=== PATIENT | female | born 1990 | race Caucasian/White ===

== ENCOUNTER → 2018-05-31 13:24 | Outpatient (REF) | payer BC, SELFPAY | LOC: LBN 13:24 | PROVIDERS: PCP Family Medicine; Visit Provider Nurse Practitioner Family | DX: R10.9 Unspecified abdominal pain (principal) | CPT/HCPCS: 87077; 87086 ==

== ENCOUNTER → 2018-05-31 15:24 | Outpatient (CLI) | payer BC, SELFPAY ==
[2018-05-31 17:10] LABS: ALT 40 U/L (12-78); AST 20 U/L (15-37); Albumin 3.6 g/dL (3.4-5.0); Alkaline Phosphatase 107 U/L (46-116); Amylase 41 U/L (25-115); Anion Gap 10.5 mmol/L (3-11); BUN 13 mg/dL (7-18); Bilirubin, Total 0.1 mg/dL (0.2-1.0); CO2 20.5 mmol/L (21.0-32.0); CREATININE 0.84 mg/dL (0.55-1.02); Calcium 8.6 mg/dL (8.5-10.1); Chloride 108 mmol/L (98-107); Glucose 99 mg/dL (70-100); Lipase 272 U/L (73-393); Potassium 3.8 mmol/L (3.5-5.1); Sodium 139 mmol/L (136-145); Total Protein 7.2 g/dL (6.4-8.2)
== END ==
PROVIDERS: PCP Family Medicine; Visit Provider Nurse Practitioner Family
DX: R10.9 Unspecified abdominal pain (principal)
CPT/HCPCS: 36415; 80053; 83690; 82150

== ENCOUNTER → 2018-06-02 00:49 | Outpatient (CLI) | payer BC, SELFPAY ==
[2018-06-02] MEDS: Omnipaque 350 MG/ML 100 ML BTL IJ (10:17)
[2018-06-02] MEDS: Omnipaque 350 MG/ML 50 ML BTL IJ ×2 (10:19→10:20)
--- NOTE | 2018-06-02 10:26 | DI.RPTCT_ITS ---
SYMPTOM/DIAGNOSIS: RT SIDED ABD PAIN, HEPATOMEGALY, ? RENAL CALCULI, ASTHMA , TBI ABDOMINAL AND PELVIC CT: 06/02 CT examination of the abdomen and pelvis was performed with initial noncontrast CT of the abdomen and pelvis followed by contrast enhanced abdominal and pelvic CT utilizing venous phase imaging following intravenous infusion of 125 cc Omnipaque 350 and ingestion of dilute barium. Images obtained through the lung bases are unremarkable. Liver, spleen and pancreas appear normal. Gallbladder and bile ducts are CT normal. Adrenals and kidneys are normal except for an apparent incidental 1.5 cm in diameter right renal cyst. No evidence of hydronephrosis or nephrolithiasis. Abdominal aorta is of normal diameter and no major vascular abnormalities seen. No significant abdominal wall hernia seen. Note is made of nonspecific mild prominence of mesenteric lymph nodes the largest of which measure in the 2 cm range. Appendix is normal. No evidence of diverticulitis or bowel obstruction. There is an IUD in place in the uterus. Otherwise [employer] structures are unremarkable. CONCLUSION: Negative abdominal and pelvic CT, except for mild prominence of mesenteric lymph nodes which is a nonspecific finding but which may be associated with mesenteric adenitis. Please correlate clinically.
== END ==
PROVIDERS: PCP Family Medicine; Visit Provider Nurse Practitioner Family
DX: R10.31 Right lower quadrant pain (principal); R16.0 Hepatomegaly, not elsewhere classified; R59.0 Localized enlarged lymph nodes; Z97.5 Presence of (intrauterine) contraceptive device; J45.909 Unspecified asthma, uncomplicated
CPT/HCPCS: 74178; J3490; Q9967

== ENCOUNTER → 2018-06-10 16:47 | Outpatient (REF) | payer BC, SELFPAY ==
[2018-06-14 15:05] LABS: Chlamydia Result Negative; GC Result Negative; Specimen Description CERVIX
== END ==
LOC: LBN 16:47
PROVIDERS: PCP Family Medicine; Visit Provider Obstetrics & Gynecology Gynecology
DX: R10.30 Lower abdominal pain, unspecified (principal); Z11.3 Encounter for screening for infections with a predominantly sexual mode of transmission
CPT/HCPCS: 87491; 87591

== ENCOUNTER 2018-06-16 16:28 | Outpatient (CLI) | payer BC, SELFPAY | END 2018-06-16 16:48 | PROVIDERS: PCP Family Medicine; Visit Provider Nurse Practitioner Family | DX: R30.0 Dysuria (principal) | CPT/HCPCS: 87086 ==

== ENCOUNTER 2018-10-13 17:29 | Emergency (ER) | payer BC, SELFPAY ==
[2018-10-13 17:36] VITALS: BP 135/56; PULSE 96; RESP 16; TEMP 36.5; O2SAT 98
--- NOTE | 2018-10-13 17:57 | DI.RAD_ITS ---
SYMPTOM/DIAGNOSIS: LAT HIP PAIN AFTER FALL LEFT HIP AND PELVIS: No acute fracture or dislocation is identified. There is an intrauterine device in place. The soft tissues are unremarkable. IMPRESSION: No acute abnormality.
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
[2018-10-13] MEDS: Ibuprofen 600 MG TAB PO (18:09)
[2018-10-13] MEDS: Acetaminophen 500 MG TAB 1000 MG PO (18:10)
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
[2018-10-13 19:06] VITALS: PULSE 88; RESP 17; TEMP 36.7; O2SAT 98
--- NOTE | 2018-10-14 08:07 | CMPROGNOTE_ITS ---
Care Management Progress Note 10/14-CT Epperson requested assistance with a general surgery f/u in two days for Hematoma L hip. Referral faxed to [facility] this am.
== END 2018-10-13 19:03 | disposition home or self-care (01) ==
PROVIDERS: Emergency Provider Physician Assistant; PCP Family Medicine
DX: S70.02XA Contusion of left hip, initial encounter (principal); W01.10XA Fall on same level from slipping, tripping and stumbling with subsequent striking against unspecified object, initial encounter; Y92.091 Bathroom in other non-institutional residence as the place of occurrence of the external cause
CPT/HCPCS: 81025; 99283; 73502

== ENCOUNTER 2018-12-24 22:55 | Emergency (ER) | payer BC, SELFPAY ==
[2018-12-24 23:06] VITALS: BP 107/72; PULSE 104; RESP 18; TEMP 37.1; O2SAT 100
--- NOTE | 2018-12-24 23:14 | W.ED.GENAD ---
Discharge Plan Disposition Patient Disposition: HOME Condition: Improving Discharge Details Chief Complaint: Abd Prob Clinical Impression: Nausea, vomiting and diarrhea, Epigastric abdominal pain Primary Care Provider: Kimberly Reis ED Provider: Isai Cheema [place] [facility] and New Rx's Prescriptions: New promethazine 25 mg tablet 25 mg PO Q6H PRN (Reason: nausea and vomiting) Qty: 10 RF: 0 Continued magnesium oxide 500 mg capsule 500 mg PO DAILY RF: 0 paroxetine HCl 40 mg tablet 40 mg PO DAILY Qty: 30 RF: 4 albuterol sulfate [ProAir HFA] 8.5 GM HFA aerosol inhaler 2 puff Inhalation Q6H PRN Qty: 1 RF: 4 topiramate 100 MG tablet 100 mg PO HS RF: 0 candesartan [Atacand] 8 MG tablet 8 mg PO DAILY RF: 0 Mirena 1 EACH intrauterine device 1 ea Intrauterine ONCE Qty: 1 RF: 0 ondansetron 4 MG tablet,disintegrating 4 mg Sublingual Q6H PRNQty: 30 RF: 0 fluticasone propionate 50 mcg/actuation spray,suspension 2 spray SHOAIB DAILY Qty: 9.9 RF: 4 montelukast 10 mg tablet 10 mg PO DAILY Qty: 90 RF: 4 omeprazole 40 mg capsule,delayed release(DR/EC) 40 mg PO DAILY Qty: 90 RF: 4 hydroxyzine HCl 25 mg tablet 25 mg PO TID PRNRF: 0 Discharge Instructions Instructions: Acute Nausea and Vomiting (ED), Acute Diarrhea (ED), Epigastric Pain (ED) Additional Instructions: Use either your ondansetron or the prescribed promethazine to control your nausea and vomiting. Stay hydrated over the weekend. Follow-up with primary care next week if continued symptoms. Return to the emergency department if you develop high fever, worsening abdominal pain, bloody diarrhea, persistent vomiting, other concerns. Referrals: Kimberly Reis MD [Primary Care Provider] - Medical Decision Making Morbidly obese patient presenting with vomiting, diarrhea, abdominal pain. She is diffusely tender across the upper abdomen but more so in the epigastric area. She has no guarding. She is soft. She has previously had upper abdominal pain. Diarrhea is profuse and has not been present previously. She is somewhat tachycardic and gets lightheaded and dizzy with standing. IV is established and fluids started. She will be given Phenergan and Pepcid for her vomiting and abdominal discomfort. We will send stool sample for C. difficile. Will check laboratory studies especially electrolytes. We will plan CT of the abdomen pelvis with IV contrast. Laboratory studies unremarkable for the most part. White count is somewhat elevated to 14. Chemistries are fine. Lipase is normal. test negative. C. difficile is negative. CT scan of the abdomen pelvis is unremarkable other than a possible 3 cm ovarian cyst. That is clearly not causing her symptoms. She does feel better after Phenergan and Pepcid. The stomach discomfort and nausea has not completely gone away but is much improved. She is tolerating water. Patient will be discharged home at this time. She will be given prescription for Phenergan to help with nausea/vomiting. She is already on omeprazole for acid reduction. She also has ondansetron prescribed but given that she has chronic headaches this may not be the best choice for nausea and vomiting. Instructed to try to stay hydrated over the weekend. Follow-up with primary care next week if continued problems. Return to ED for fever, bloody diarrhea, new or worsening abdominal pain, persistent vomiting, other concerns. Lab Data Lab results reviewed: Yes I reviewed the patient's lab results. HPI General Mode of arrival: wheelchair. Date/Time Provider Initiated Documentation: 12/24/18 23:03. Limitations to Documentation: no limitations. Information obtained by: patient and old records reviewed. HPI Narrative: Patient presents to ED with 3 days of illness. She has had nausea, vomiting, diarrhea. She has had mostly watery diarrhea. She has diffuse abdominal discomfort but it localizes to the epigastric and right upper quadrant. She has had pain like this previously but she has not had the severe diarrhea. She denies any travel outside the [place]. She denies any suspicious food or drinks. She denies recent antibiotic use. She denies any fever. She denies hematemesis or hematochezia. There is no back pain. There is no urinary symptoms. She is able to keep down fluids but she can only drink small amounts before having significant abdominal discomfort. She is lightheaded and dizzy upon standing now. Related Data Home Medications Medication Instructions Recorded Confirmed albuterol sulfate [ProAir HFA] 2 puff INHALATION Q6H PRN #1 01/05/17 12/24/18 inhaler candesartan [Atacand] 8 mg PO DAILY 03/12/18 12/24/18 topiramate 100 mg PO HS 03/12/18 12/24/18 Mirena 1 ea INTRAUTERINE ONCE #1 implant 05/12/18 12/24/18 ondansetron 4 mg SUBLINGUAL Q6H PRN #30 tabef 05/31/18 12/24/18 fluticasone propionate 50 2 spray SHOAIB DAILY #9.9 gm 06/18/18 12/24/18 mcg/actuation nasal spray,suspension montelukast 10 mg tablet 10 mg PO DAILY #90 tab 06/18/18 12/24/18 omeprazole 40 mg capsule,delayed 40 mg PO DAILY #90 cap 06/18/18 12/24/18 release hydroxyzine HCl 25 mg tablet 25 mg PO TID PRN 08/25/18 12/24/18 magnesium oxide 500 mg capsule 500 mg PO DAILY cap 08/25/18 12/24/18 paroxetine 40 mg tablet 40 mg PO DAILY #30 tab 10/28/18 12/24/18 promethazine 25 mg PO Q6H PRN #10 tab 12/25/18 Previous Rx's Medication Instructions Recorded Mirena 1 ea INTRAUTERINE ONCE #1 implant 05/12/18 fluticasone propionate 50 2 spray SHOAIB DAILY #9.9 gm 06/18/18 mcg/actuation nasal spray,suspension montelukast 10 mg tablet 10 mg PO DAILY #90 tab 06/18/18 omeprazole 40 mg capsule,delayed 40 mg PO DAILY #90 cap 06/18/18 release paroxetine 40 mg tablet 40 mg PO DAILY #30 tab 10/28/18 promethazine 25 mg PO Q6H PRN #10 tab 12/25/18 Allergies Allergy/AdvReac Type Severity Reaction Status Date / Time Environmental Allergy Intermediate Watery, Uncoded 10/28/18 10:17 itchy eyes, swelling General Stated Complaint: Abd Prob LIO: 3 Review of Systems Constitutional Denies chills, Denies fever(s), Reports headache(s) (frequent chronic headache), Reports malaise, Reports poor appetite and Denies weakness Eyes Denies change in vision and Denies eye pain ENT Denies vertigo, Reports dizziness, Denies otalgia, Denies facial pain, Reports headache(s) (frequent chronic headache), Denies nasal congestion, Denies neck pain and Denies sore throat Cardiovascular Denies chest pain, Denies diaphoresis, Denies syncope, Reports lightheadedness and Denies dyspnea Respiratory Denies cough and Denies dyspnea Gastrointestinal Reports abdominal pain, Denies hematochezia, Reports diarrhea, Reports nausea, Reports vomiting and Denies hematemesis Genitourinary Denies dysuria and Denies pelvic pain Musculoskeletal Denies back pain, Denies neck pain and Denies numbness Integumentary/Breasts Denies rash Neurologic Denies vertigo, Reports dizziness, Denies syncope, Reports headache(s) (frequent chronic headache), Denies focal weakness, Denies numbness and Denies weakness [facility] Medical History ADHD (attention deficit hyperactivity disorder) Asthma BMI 60.0-69.9, adult Closed TBI (traumatic brain injury) E-coli UTI GERD (gastroesophageal reflux disease) Polycystic ovarian syndrome Surgical History Meniscectomy Social History Smoking/Tobacco Use Status: Never Second Hand Exposure: No Alcohol Intake: never Drug use: Never Substance use type: does not use Household members: spouse Seatbelt use: always Do you feel safe at home: Yes Do you feel safe in your relationship?: Yes Female Reproductive History Menstrual control method: progestin IUCD History History 0 Para Hx # Term Pregnancies Multiple births Hx # Pregnancies Ectopic pregnancies AB induced Hx Number of Living Children AB spontaneous Exam Const General: cooperative and no acute distress Nutritional Appearance: obese morbidly obese Orientation: alert and oriented x3 [facility] Head: normocephalic and atraumatic Eyes Sclera: sclerae normal Neck Neck: trachea midline and supple Resp Effort & Inspection: normal respiratory effort Auscultation: clear to auscultation bilaterally Cardio Rate: tachycardic Rhythm: regular rhythm Heart Sounds: S1 normal and S2 normal GI Inspection: normal to inspection and non-distended Palpation: soft, not firm, no guarding and tender (diffusely tender in upper abdomen worse epigastric) Skin Rashes: no rashes Neuro General: alert, oriented x3, no focal motor deficits and CN's II-XI intact bilaterally Gait: normal gait Sensory Exam: no sensory deficits noted Extrem General: full ROM and normal capillary refill Course Vital Signs Temperature 98.8 F 12/24/18 23:06 Pulse 104 H 12/24/18 23:06 Respiratory Rate 18 12/24/18 23:06 Blood Pressure 107/72 12/24/18 23:06 Pulse Oximetry 100 12/24/18 23:06 Temperature 98.8 F 12/24/18 23:06 Temperature Source Temporal Artery Scan 12/24/18 23:06 Pulse 104 H 12/24/18 23:06 Respiratory Rate 18 12/24/18 23:06 Respiratory Effort Non-Labored 12/24/18 23:09 Blood Pressure 107/72 12/24/18 23:06 Blood Pressure Position Supine 12/24/18 23:06 Pulse Oximetry 100 12/24/18 23:06 Oxygen Delivery Method Room Air 12/24/18 23:06 Oxygen Flow Rate 0 12/24/18 23:06 Pain Level 9 12/24/18 23:06
[2018-12-24 23:53] LABS: Abs Immature Grans 0.03 k/cumm (0.0-0.09); Absolute Lymphocyte Count 1.73 k/cumm (1.2-3.4); Absolute Monocyte Count 0.96 k/cumm (0.11-0.7); Basophils % 0.1; Eosinophils % 1.8; HCT 45.2 % (36.0-46.0); HGB 15.3 g/dL (12.0-15.5); Immature Grans % 0.2; Lymphocytes % 12.2; Mean Corp. HGB Concentration 33.8 g/dL (32.0-36.0); Mean Corpuscular Volume 91.7 fL (80-95); Mean Platelet Volume 9.8 fL (8.0-11.0); Monocytes % 6.8; Neutrophils % 78.9; Platelet Count 294 x1000/uL (130-400); RBC 4.93 m/cumm (4.00-5.20); RBC Distribution Width 13.6 % (11.7-14.6); White Blood Cell Count 14.14 k/cumm (4.4-10.8)
[2018-12-24] MEDS: Normal Saline 1,000 ML 1000 ML IV (23:53)
[2018-12-24 23:54] LABS: Absolute Basophil Count 0.01 k/cumm (0.0-0.2); Absolute Eosinophil Count 0.25 k/cumm (0.0-0.7); Absolute Neutrophil Count 11.16 k/cumm (1.2-6.7)
[2018-12-25 00:06] LABS: ALT 26 U/L (12-78); AST 13 U/L (15-37); Albumin 3.8 g/dL (3.4-5.0); Alkaline Phosphatase 103 U/L (46-116); Anion Gap 10.9 mmol/L (3-11); BUN 9 mg/dL (7-18); Bilirubin, Total 0.3 mg/dL (0.2-1.0); CO2 23.1 mmol/L (21.0-32.0); CREATININE 0.78 mg/dL (0.55-1.02); Calcium 8.8 mg/dL (8.5-10.1); Chloride 107 mmol/L (98-107); Glucose 89 mg/dL (70-100); HCG Qual (Serum) Negative; Lipase 198 U/L (73-393); Potassium 3.5 mmol/L (3.5-5.1); Sodium 141 mmol/L (136-145); Total Protein 7.7 g/dL (6.4-8.2)
[2018-12-25] MEDS: FAMOTIDINE 20 MG/50 ML BAG 100 MG IVPB (00:15)
--- NOTE | 2018-12-25 00:46 | DI.CT_ITS ---
SYMPTOM/DIAGNOSIS: ABD PAIN, VOMITING ABDOMEN AND PELVIC CT: CT scan of the abdomen and pelvis was performed following the uneventful administration of intravenous contrast material. Comparison is made with 06/02/18. The lung bases show no acute abnormality. The liver is normal in size. No suspicious hepatic mass is seen. The portal, superior mesenteric and splenic veins are patent. The gallbladder is negative. There is no biliary ductal dilatation. The pancreas, spleen and adrenal glands are unremarkable. The kidneys show normal and symmetric enhancement. No evidence of a solid renal mass or obstruction. The urinary bladder is intact. There is an intrauterine device in good position within the uterus. There is a question of a cyst in the left adnexa, likely ovarian. It appears to measure 2.7 cm. The bowel shows no evidence of obstruction or inflammation. No findings of an acute appendicitis are present. The aorta is of normal caliber. No significant abdominal or pelvic adenopathy, ascites or pneumoperitoneum is present. The bones appear intact. IMPRESSION: 1. No evidence of an acute abdomen. 2. Findings suggesting a 2.7 cm. right ovarian cyst. If further imaging is warranted, a pelvic ultrasound may be considered.
[2018-12-25] MEDS: Omnipaque 350 MG/ML 50 ML BTL IJ (00:53)
[2018-12-25] MEDS: Omnipaque 350 MG/ML 100 ML BTL IJ (00:53)
--- NOTE | 2018-12-25 01:30 | DI.VRAD_ITS ---
EXAM: CT Abdomen and Pelvis With Contrast EXAM DATE/TIME: 12/25/2018 12:09 AM CLINICAL HISTORY: 28 years old, female; Pain; Abdominal pain; Generalized TECHNIQUE: Axial computed tomography images of the abdomen and pelvis with intravenous contrast. All CT scans at this facility use at least one of these dose optimization techniques: automated exposure control; mA and/or kV adjustment per patient size (includes targeted exams where dose is matched to clinical indication); or iterative reconstruction. Coronal and sagittal reformatted images were created and reviewed. CONTRAST: Contrast Material: 125 ml of [id number]; Contrast Route: iv COMPARISON: CT Abdomen^ROUTINE ABDOMEN PELVIS WITH CONTRAST (Adult) 06/02/2018 9:48 AM FINDINGS: Lower thorax: No acute findings. ABDOMEN: Liver: Normal. No mass. Gallbladder and bile ducts: Normal. No calcified stones. No ductal dilation. Pancreas: Normal. No ductal dilation. Spleen: Normal. No splenomegaly. Adrenals: Normal. No mass. Kidneys and ureters: Normal. No hydronephrosis. Stomach and bowel: Normal. No obstruction. No mucosal thickening. Appendix: No evidence of appendicitis. PELVIS: Bladder: Unremarkable as visualized. Reproductive: IUD in place. Suggestion of 2.8 cm right ovarian cyst. ABDOMEN and PELVIS: Intraperitoneal space: Normal. No free air. No significant fluid collection. Bones/joints: No acute fracture. No dislocation. Soft tissues: Unremarkable. Vasculature: Normal. No abdominal aortic aneurysm. Lymph nodes: Normal. No enlarged lymph nodes. IMPRESSION: Suggestion of 2.8 cm right ovarian cyst. No Dictated and Authenticated by: Gabe Seth MD. Ordering:MARCY Alex MD
[2018-12-25 01:49] VITALS: BP 106/73; PULSE 105; RESP 18; TEMP 37.1; O2SAT 98
== END 2018-12-25 01:51 | disposition home or self-care (01) ==
PROVIDERS: Emergency Provider Emergency Medicine; PCP Family Medicine
DX: R10.13 Epigastric pain (principal); R11.2 Nausea with vomiting, unspecified; R19.7 Diarrhea, unspecified
CPT/HCPCS: 36415; 80053; 83690; 96361; 96365; 96368; 99285; 74177; 83735; 84703; 85025; 87324; 99284; J3490; Q9967

== ENCOUNTER 2019-01-23 09:06 | Emergency (ER) | payer BC, SELFPAY ==
[2019-01-23 09:09] VITALS: BP 150/82; PULSE 87; RESP 16; TEMP 36.5; O2SAT 98
--- NOTE | 2019-01-23 10:25 | ED.GENADUL_ITS ---
Discharge Plan Disposition Patient Disposition: HOME Condition: Stable Discharge Details Chief Complaint: EarProblem Clinical Impression: Otitis media, Sinusitis Primary Care Provider: Kimberly Reis ED Provider: Dione Grant Home Meds and New Rx's Prescriptions: New amoxicillin 500 mg tablet 500 mg PO TID 10 Days Qty: 30 RF: 0 Continued magnesium oxide 500 mg capsule 500 mg PO DAILY RF: 0 paroxetine HCl 40 mg tablet 40 mg PO DAILY Qty: 30 RF: 4 albuterol sulfate [ProAir HFA] 8.5 GM HFA aerosol inhaler 2 puff Inhalation Q6H PRN Qty: 1 RF: 4 topiramate 100 MG tablet 100 mg PO HS RF: 0 candesartan [Atacand] 8 MG tablet 8 mg PO DAILY RF: 0 Mirena 1 EACH intrauterine device 1 ea Intrauterine ONCE Qty: 1 RF: 0 fluticasone propionate 50 mcg/actuation spray,suspension 2 spray SHOAIB DAILY Qty: 9.9 RF: 4 montelukast 10 mg tablet 10 mg PO DAILY Qty: 90 RF: 4 omeprazole 40 mg capsule,delayed release(DR/EC) 40 mg PO DAILY Qty: 90 RF: 4 hydroxyzine HCl 25 mg tablet 25 mg PO TID PRNRF: 0 promethazine 25 mg tablet 25 mg PO Q6H PRN (Reason: nausea and vomiting) Qty: 10 RF: 0 Discharge Instructions Instructions: Sinusitis (ED), Otitis Media (ED) Additional Instructions: Alternate Tylenol and Motrin as needed and directed for pain. Use [id number]-lknicwc saline nose spray, sinus rinse kit, Dayquil, NyQuil, or Sudafed to help with nasal congestion and pain. If your symptoms do not improve with [id number] symptomatic treatments, you may start the antibiotics. Return immediately to the emergency department with any worsening or new concerning symptoms. Discharge Data Discharge Physician: Dione Grant Medical Decision Making 28-year-old female who presents with sore throat, sinus and nasal congestion, and left ear pain for 10 days. States the sore throat has been resolved and now mainly complaining of left ear pain. Blood pressure mildly hypertensive, remainder vitals within normal limits. Patient appears nontoxic. Her left TM is erythematous and dull. No signs of otitis externa. She has bilateral frontal and left maxillary sinus tenderness. Oropharynx normal to inspection. Lungs clear to auscultation. No meningeal signs. Discussed with patient that her symptoms could likely be viral, but as her left ear pain is worsening over the past few days, possibly has become bacterial. She is instructed to use shnw-wzs-pqlnyvw symptomatic treatment including saline nose spray, sinus rinse kit, decongestants, NSAIDS, tylenol in addition to rest, fluids. We will send home with a prescription for amoxicillin. She is instructed to follow-up with her primary care doctor for reevaluation and return here if worse. HPI General Mode of arrival: ambulatory . Date/Time Provider Initiated Documentation: 01/23/19 09:26 . Limitations to Documentation: no limitations . Information obtained by: patient . HPI Narrative: Patient is a 28-year-old female with a history of PCOS, GERD, asthma who presents with sore throat, sinus congestion, nasal congestion, and left ear pain for the past 10 days. She states her symptoms first started with sore throat but this is now resolved and she is mainly complaining of left ear pain. She does admit to occasional cough but states this is dry. She denies any known fever. She states she has been eating and drinking normally. She denies any vomiting, abdominal pain, urinary symptoms, neck pain or headache. She is taken [id number] decongestant sinex without relief. Related Data Home Medications Medication Instructions Recorded Confirmed albuterol sulfate [ProAir HFA] 2 puff INHALATION Q6H PRN #1 01/05/17 01/23/19 inhaler candesartan [Atacand] 8 mg PO DAILY 03/12/18 01/23/19 topiramate 100 mg PO HS 03/12/18 01/23/19 Mirena 1 ea INTRAUTERINE ONCE #1 implant 05/12/18 01/23/19 fluticasone propionate 50 2 spray SHOAIB DAILY #9.9 gm 06/18/18 01/23/19 mcg/actuation nasal spray,suspension montelukast 10 mg tablet 10 mg PO DAILY #90 tab 06/18/18 01/23/19 omeprazole 40 mg capsule,delayed 40 mg PO DAILY #90 cap 06/18/18 01/23/19 release hydroxyzine HCl 25 mg tablet 25 mg PO TID PRN 08/25/18 01/23/19 magnesium oxide 500 mg capsule 500 mg PO DAILY cap 08/25/18 01/23/19 paroxetine 40 mg tablet 40 mg PO DAILY #30 tab 10/28/18 01/23/19 promethazine 25 mg PO Q6H PRN #10 tab 12/25/18 01/23/19 amoxicillin 500 mg PO TID 10 Days #30 tab 01/23/19 Previous Rx's Medication Instructions Recorded Mirena 1 ea INTRAUTERINE ONCE #1 implant 05/12/18 fluticasone propionate 50 2 spray SHOAIB DAILY #9.9 gm 06/18/18 mcg/actuation nasal spray,suspension montelukast 10 mg tablet 10 mg PO DAILY #90 tab 06/18/18 omeprazole 40 mg capsule,delayed 40 mg PO DAILY #90 cap 06/18/18 release paroxetine 40 mg tablet 40 mg PO DAILY #30 tab 10/28/18 promethazine 25 mg PO Q6H PRN #10 tab 12/25/18 amoxicillin 500 mg PO TID 10 Days #30 tab 01/23/19 Allergies Allergy/AdvReac Type Severity Reaction Status Date / Time Environmental Allergy Intermediate Watery, Uncoded 01/23/19 09:11 itchy eyes, swelling General Stated Complaint: EarProblem LIO: 4 Review of Systems Review of Systems All systems reviewed & are unremarkable except as noted in HPI and below Constitutional Reports as per HPI, Denies chills and Denies fever(s) Eyes Denies blurry vision ENT Denies dizziness, Denies ear discharge, Reports otalgia, Reports nasal congestion, Reports sinus pain, Reports sinus pressure, Denies sore throat and Denies throat swelling Cardiovascular Denies chest pain and Denies dyspnea Respiratory Denies cough and Denies dyspnea Gastrointestinal Denies abdominal pain, Denies diarrhea and Denies vomiting Genitourinary Denies hematuria and Denies dysuria Musculoskeletal Denies back pain and Denies numbness Integumentary/Breasts Denies lesions and Denies rash Neurologic Denies dizziness, Denies focal weakness and Denies numbness Allergic/Immunologic Denies throat swelling PFSH Medical History ADHD (attention deficit hyperactivity disorder) Asthma BMI 60.0-69.9, adult Closed TBI (traumatic brain injury) E-coli UTI GERD (gastroesophageal reflux disease) Polycystic ovarian syndrome Surgical History Meniscectomy Family History Mother Neoplasm Father No problems noted. Sister No problems noted. Grandfather Diabetes Grandfather No problems noted. Grandmother Diabetes Grandmother Diabetes Social History Smoking/Tobacco Use Status: Never Second Hand Exposure: No Alcohol Intake: never Drug use: Never Substance use type: does not use Household members: spouse Number of Children: 0 Seatbelt use: always Do you feel safe at home: Yes Do you feel safe in your relationship?: Yes Female Reproductive History Menstrual control method: progestin IUCD History History 0 Para Hx # Term Pregnancies Multiple births Hx # Pregnancies Ectopic pregnancies AB induced Hx Number of Living Children AB spontaneous Exam Const General: cooperative and healthy appearing Orientation: alert and awake HENMT Head: normal to inspection Ears: hearing grossly normal bilaterally, external ears normal, mastoids normal bilaterally and TM abnormal dull and erythematous General nose exam: external nose normal Face and sinus: normal facial exam and sinus tenderness frontal (bilateral) and maxillary (Left side) Mouth: oral mucosae normal Teeth and gingiva: dentition normal Throat: posterior oropharynx normal Eyes General: appearance normal, both eyes and all related structures Eyelids: eyelids normal Pupils: PERRL EOM: EOM intact bilaterally Neck Neck: normal visual inspection, no meningeal signs, trachea midline, supple and lymphadenopathy (mild L lateral anterior cervical ) Resp Effort & Inspection: normal respiratory effort and able to speak in complete sentences Auscultation: clear to auscultation bilaterally Cardio Rate: regular rate Rhythm: regular rhythm GI Inspection: normal to inspection Skin General skin exam: no rashes or lesions noted Neuro General: alert and awake Cognition: normal cognition Speech: speech normal Gait: normal gait Motor: muscle tone normal throughout Sensory Exam: no sensory deficits noted Extrem General: normal to inspection and full ROM Psych Appearance: grossly normal Mental Status: mental status grossly normal Speech and Movement: speech and movement normal Affect: normal affect Thought Process: normal Course Vital Signs Temperature 97.7 F 01/23/19 09:09 Pulse 87 01/23/19 09:09 Respiratory Rate 16 01/23/19 09:09 Blood Pressure 150/82 H 01/23/19 09:09 Pulse Oximetry 98 01/23/19 09:09 Temperature 97.7 F 01/23/19 09:09 Pulse 87 01/23/19 09:09 Respiratory Rate 16 01/23/19 09:09 Respiratory Effort Non-Labored 01/23/19 09:13 Blood Pressure 150/82 H 01/23/19 09:09 Blood Pressure Position Sitting 01/23/19 09:09 Pulse Oximetry 98 01/23/19 09:09 Oxygen Delivery Method Room Air 01/23/19 09:09 Oxygen Flow Rate 0 01/23/19 09:09 Pain Level 8 01/23/19 09:14
== END 2019-01-23 10:35 | disposition home or self-care (01) ==
PROVIDERS: Emergency Provider Physician Assistant; PCP Family Medicine
DX: H66.92 Otitis media, unspecified, left ear (principal); J01.90 Acute sinusitis, unspecified
CPT/HCPCS: 99283

== ENCOUNTER 2019-09-15 01:45 | Outpatient (CLI) | payer BC, SELFPAY ==
--- NOTE | 2019-09-15 09:00 | DI.US_ITS ---
EXAM: US ABD PELV TRANSVAG NON-OB CLINICAL HISTORY: RUQ pain (chronic )/ pelvic pain (Mirena in place) TECHNIQUE: Ultrasound performed using standard protocol. COMPARISON: PELVIS TRANSVAG from 08/21/2017 CT ABDOMEN PELVIS W from 12/25/2018 FINDINGS: Abdominal ultrasound: The aorta is normal in diameter. The visualized portions of the pancreas are unremarkable. The liver is enlarged at 19.6 cm in length. There is increased liver echogenicity con sistent with mild to moderate hepatic steatosis. No focal liver lesions or biliary dilatation. The gallbladder is unremarkable, without evidence of stones or wall thickening. No ascites is seen. The spleen and kidneys are unremarkable. Pelvic ultrasound: Transabdominal and transvaginal exams were performed. The transabdominal images a re limited by patient body habitus and lack of bladder distention. The uterus measures 6.2 x 3.2 x 3 .8 cm. An IUD is seen within the endometrial stripe and appears satisfactorily positioned. The end ometrial stripe measures 4 millimeters in thickness and appears homogeneous. No fibroids are seen. The ovaries are within normal limits in size, however there are multiple peripheral follicles suggest ing polycystic ovarian syndrome. There is no free fluid. IMPRESSION: Hepatic steatosis. No gallbladder abnormality or biliary dilatation. IUD appears appropriately positioned. Multiple bilateral peripheral ovarian follicles suggesting polycystic ovarian syndrome.
== END 2019-09-15 02:05 ==
PROVIDERS: PCP Family Medicine; Visit Provider Family Medicine
DX: R10.11 Right upper quadrant pain (principal); R10.2 Pelvic and perineal pain; Z97.5 Presence of (intrauterine) contraceptive device; K76.0 Fatty (change of) liver, not elsewhere classified; R16.0 Hepatomegaly, not elsewhere classified; E28.2 Polycystic ovarian syndrome
CPT/HCPCS: 76700; 76830; 76856

== ENCOUNTER 2019-09-26 14:16 | Outpatient (CLI) | payer BC, SELFPAY ==
[2019-09-26 14:49] LABS: Abs Immature Grans 0.07 k/cumm (0.0-0.09); Absolute Basophil Count 0.03 k/cumm (0.0-0.2); Absolute Eosinophil Count 0.27 k/cumm (0.0-0.7); Absolute Neutrophil Count 9.45 k/cumm (1.2-6.7); Basophils % 0.2; Eosinophils % 1.9; HCT 46.6 % (36.0-46.0); HGB 15.5 g/dL (12.0-15.5); Immature Grans % 0.5; Mean Corp. HGB Concentration 33.3 g/dL (32.0-36.0); Mean Corpuscular Hemoglobin 30.2 pg (27.0-33.0); Mean Corpuscular Volume 90.7 fL (80-95); Mean Platelet Volume 9.3 fL (8.0-11.0); Monocytes % 4.9; Neutrophils % 66.5; Platelet Count 331 x1000/uL (130-400); RBC 5.14 m/cumm (4.00-5.20); RBC Distribution Width 13.5 % (11.7-14.6); White Blood Cell Count 14.21 k/cumm (4.4-10.8)
[2019-09-26 14:50] LABS: Absolute Lymphocyte Count 3.69 k/cumm (1.2-3.4)
[2019-09-26 15:55] LABS: Iron 73 ug/dL (50-170); Total Iron Binding Capacity 333 ug/dL (250-450); Transferrin Sat 22 % (15-50)
[2019-09-26 16:04] LABS: Ferritin 111 ng/mL (8-252)
[2019-09-29 12:51] LABS: IgA 160 mg/dL (85-499); Tissue Transglutaminase IgA <1.2 U/mL (<4.0)
== END 2019-09-26 14:36 ==
PROVIDERS: PCP Family Medicine; Visit Provider Family Medicine
DX: R53.83 Other fatigue (principal); R19.7 Diarrhea, unspecified
CPT/HCPCS: 36415; 82784; 83516; 82728; 83540; 83550; 83735; 84443; 85025

== ENCOUNTER 2019-09-26 14:24 | Outpatient (REF) | payer BC, SELFPAY ==
[2019-09-27 18:27] LABS: Campylobacter PCR Negative (Negative); Salmonella PCR Negative (Negative); Shiga Toxin PCR Negative (Negative); Shigella/Enteroinvasive Ecoli Negative (Negative)
== END 2019-09-26 14:44 ==
LOC: LBN 14:24
PROVIDERS: PCP Family Medicine; Visit Provider Family Medicine
DX: R19.7 Diarrhea, unspecified (principal)
CPT/HCPCS: 87505

== ENCOUNTER 2019-10-28 14:12 | Outpatient (CLI) | payer BC, SELFPAY ==
[2019-10-28 14:43] LABS: HCT 42.7 % (36.0-46.0); HGB 14.3 g/dL (12.0-15.5); Mean Corp. HGB Concentration 33.5 g/dL (32.0-36.0); Mean Corpuscular Hemoglobin 30.4 pg (27.0-33.0); Mean Corpuscular Volume 90.9 fL (80-95); Mean Platelet Volume 9.4 fL (8.0-11.0); Platelet Count 267 x1000/uL (130-400); RBC Distribution Width 13.1 % (11.7-14.6); White Blood Cell Count 12.34 k/cumm (4.4-10.8)
[2019-10-28 15:38] LABS: ALT 30 U/L (14-59); AST 18 U/L (15-37); Albumin 3.7 g/dL (3.4-5.0); Alkaline Phosphatase 87 U/L (46-116); Bilirubin, Direct 0.07 mg/dL (0.00-0.20); Bilirubin, Total 0.2 mg/dL (0.2-1.0); FREE T4 1.03 ng/dL (0.76-1.46); TSH 4.69 uIU/mL (0.36-3.74); Total Protein 7.3 g/dL (6.4-8.2)
[2019-10-28 23:19] LABS: T3, Total 159 ng/dL (97-169)
[2019-10-31 10:32] LABS: DHEA Sulfate 370 ug/dL (96-512)
[2019-11-01 17:28] LABS: Testosterone, Free 1.12 ng/dL (0.06-1.06); Testosterone, Total 40 ng/dL (8-60)
[2019-11-01 20:35] LABS: 17-Hydroxyprogesterone <40 ng/dL
== END 2019-10-28 14:32 ==
PROVIDERS: PCP Family Medicine; Visit Provider Obstetrics & Gynecology Gynecology
DX: E28.2 Polycystic ovarian syndrome (principal); R19.7 Diarrhea, unspecified; R79.89 Other specified abnormal findings of blood chemistry; K76.0 Fatty (change of) liver, not elsewhere classified
CPT/HCPCS: 36415; 80076; 82627; 84402; 84403; 85027; 83498; 84439; 84443; 84480

== ENCOUNTER 2019-12-01 01:32 | Outpatient (CLI) | payer BC, SELFPAY ==
--- NOTE | 2019-12-01 12:45 | DI.US_ITS ---
EXAM: US THYROID CLINICAL HISTORY: eval size of thyroid - Pt has elevated BMI,difficulty swallowing, R13.10 TECHNIQUE: Ultrasound thyroid performed using standard protocol COMPARISON: No exams were available for comparison FINDINGS: ISTHMUS: 4 mm RIGHT LOBE: Size: 4.1x 1.4 x 1.8 cm Echogenicity: Mildly heterogeneous Vascularity: Normal. Nodules: None. LEFT LOBE: Size: 4.6 x 1.3 x 1.6 cm Echogenicity: Mildly heterogeneous Vascularity: Normal. Nodules: None. OTHER FINDINGS: None. IMPRESSION: Normal-sized thyroid with mildly heterogeneous echotexture. No masses seen. There is no evidence ad enopathy. DATA REPOSITORY:
== END 2019-12-01 01:52 ==
PROVIDERS: PCP Family Medicine; Visit Provider Obstetrics & Gynecology Gynecology
DX: R13.10 Dysphagia, unspecified (principal); E07.9 Disorder of thyroid, unspecified
CPT/HCPCS: 76536

== ENCOUNTER 2020-01-11 08:43 | Outpatient (CLI) | payer BC, SELFPAY ==
[2020-01-16 08:19] LABS: COVID-19 RT-PCR Result Not Detected (NotDetected)
== END 2020-01-11 09:03 ==
PROVIDERS: PCP Family Medicine; Visit Provider Family Medicine
DX: Z11.59 Encounter for screening for other viral diseases (principal); R05 Cough
CPT/HCPCS: 87449; U0003

== ENCOUNTER 2020-08-29 | Outpatient (REF) | payer BC, SELFPAY ==
[2020-09-05 23:26] LABS: Midnight Cortisol <50 ng/dL (<100)
== END 2020-08-29 00:20 ==
LOC: LBN
PROVIDERS: PCP Family Medicine; Visit Provider Internal Medicine Endocrinology, Diabetes & Metabolism
DX: E66.01 Morbid (severe) obesity due to excess calories (principal); Z87.42 Personal history of other diseases of the female genital tract; E28.8 Other ovarian dysfunction; Z86.39 Personal history of other endocrine, nutritional and metabolic disease
CPT/HCPCS: 82530

== ENCOUNTER 2020-08-29 03:01 | Outpatient (CLI) | payer BC, SELFPAY ==
[2020-08-29 17:47] LABS: COMMENT (LAB VIEW ONLY) 313.75 mg/dL; Microalb ug/mg Crea 7.7 ug/mg Cr
[2020-08-29 20:01] LABS: Hemoglobin A1C 5.5 % (<5.7)
[2020-08-29 20:05] LABS: ALT 36 U/L (14-59); AST 22 U/L (15-37); Alkaline Phosphatase 87 U/L (46-116); Anion Gap 10.2 mmol/L (3-11); BUN 11 mg/dL (7-18); Bilirubin, Total 0.4 mg/dL (0.2-1.0); CO2 25.8 mmol/L (21.0-32.0); CREATININE 0.75 mg/dL (0.55-1.02); Calcium 9.1 mg/dL (8.5-10.1); Chloride 105 mmol/L (98-107); Glucose 77 mg/dL (74-106); Potassium 4.1 mmol/L (3.5-5.1); Sodium 141 mmol/L (136-145); TSH 3.75 uIU/mL (0.36-3.74); Total Protein 7.9 g/dL (6.4-8.2)
[2020-08-29 20:28] LABS: Calculated LDL 96 mg/dL (<100); Cholesterol 155 mg/dL (<200); HDL Cholesterol 39 mg/dL (40-60); T4 10.6 ug/mL (4.7-13.3); Triglyceride 104 mg/dL (<150)
[2020-08-31 13:07] LABS: Adrenocorticotropic Hormone, P 26 pg/mL
[2020-09-03 12:21] LABS: IGF-1, LC/MS, S 187 ng/mL (66-303); Z-score 0.52 SD
[2020-09-03 16:01] LABS: Testosterone, Free 1.65 ng/dL (0.06-1.06); Testosterone, Total 50 ng/dL (8-60)
[2020-09-03 18:48] LABS: 17-Hydroxyprogesterone <40 ng/dL
[2020-09-13 12:56] LABS: DHEA Sulfate 375 mcg/dL
[2020-09-13 12:58] LABS: LH 5.8 IU/L
[2020-09-13 12:59] LABS: FSH 6.2 IU/L
[2020-09-13 13:01] LABS: Prolactin 25.5 ng/mL (4.8-23.3)
[2020-09-18 10:01] LABS: Misc Referral (MAYO) See Comments
== END 2020-08-29 03:21 ==
PROVIDERS: PCP Family Medicine; Visit Provider Internal Medicine Endocrinology, Diabetes & Metabolism
DX: E28.8 Other ovarian dysfunction (principal); E66.01 Morbid (severe) obesity due to excess calories; Z87.42 Personal history of other diseases of the female genital tract; Z86.39 Personal history of other endocrine, nutritional and metabolic disease
CPT/HCPCS: 36415; 80053; 80061; 82627; 84402; 84403; 82024; 82043; 82570; 83001; 83002; 83036; 83498; 84146; 84305; 84436; 84443; 86376

== ENCOUNTER 2020-10-03 06:51 | Emergency (ER) | payer BC, SELFPAY ==
[2020-10-03 06:54] VITALS: BP 169/108; PULSE 117; RESP 18; TEMP 36.4; O2SAT 98
--- NOTE | 2020-10-03 07:15 | DI.CT_ITS ---
EXAM: CT NECK W CLINICAL HISTORY: soft tissue mass in neck sub mandibular. TECHNIQUE: Imaging Protocol: Axial computed tomography images with coronal and sagittal reformatted images were created and reviewed. CONTRAST MATERIAL: Intravenous: Omnipaque 350 Contrast volume:100 mL COMPARISON: No exams were available for comparison FINDINGS: Visualized paranasal sinuses: Within normal limits. Nasopharynx: Within normal limits. Oropharynx: Within normal limits. Hypopharynx: Within normal limits. Larynx: Within normal limits. Retropharyngeal space: Within normal limits. Parotids/submandibular: Within normal limits. Thyroid gland: Within normal limits. Lymphadenopathy: There is a isodense soft tissue nodule in the left submandibular region measuring 1 .8 cm. It is not contiguous with the musculature or the submandibular gland. There is mild infiltra tion of the surrounding fat. No focal fluid collection is seen to suggest an abscess. Trachea: Within normal limits. Lung apices: Within normal limits. Bones: Within normal limits. Carotids/Jugular: Within normal limits. Soft tissues: Within normal limits. IMPRESSION: 1.8 cm isodense soft tissue nodule in the left submandibular region corresponding to the palpable abn ormality. It does not appear to involve the surrounding soft tissues or bone. This may represent an enlarged lymph node. No focal fluid collection is seen to suggest an abscess. There is mild infilt ration of the surrounding fat and a cellulitis cannot be excluded. The findings were discussed with the emergency department on the date of the examination. RADIATION DOSE DELIVERED: 749.53mGy.cm Total DLP 749.53mGy.cm Total DLP DATA REPOSITORY: All CT scans at this facility are submitted to the National Radiology Data Registry (NRDR) Dose Index Registry (DIR) with the [employer] (ACR). RADIATION OPTIMIZATION: All CT scans at this facility use at least one of these dose optimization te chniques: automated exposure control; mA and/or kV adjustment per patient size (includes targeted exa ms where dose is matched to clinical indication); or iterative reconstruction.
--- NOTE | 2020-10-03 07:46 | ED.GENADUL_ITS ---
Discharge Plan Disposition Patient Disposition: HOME Condition: Good Discharge Details Clinical Impression: Skin lesion Primary Care Provider: Kimberly Reis ED Provider: Gabe Pedro Home Meds and New Rx's Prescriptions: New prednisone 20 mg tablet 60 mg PO DAILY 5 Days Qty: 15 RF: 0 amoxicillin-pot clavulanate [Augmentin] 875-125 mg tablet 1 tab PO BID Qty: 14 RF: 0 Continued Mirena 1 EACH intrauterine device 1 ea Intrauterine ONCE Qty: 1 RF: 0 omeprazole 40 mg capsule,delayed release(DR/EC) 40 mg PO DAILY Qty: 90 RF: 4 albuterol sulfate [ProAir HFA] 90 mcg/actuation HFA aerosol inhaler 2 puff Inhalation Q6H PRN Qty: 1 RF: 6 (DME) Iraj Aerosol Panola Enhancer Spacer See Rx Instructions .ROUTE .MEDSUPPLY Qty: 1 RF: 0 fluticasone propionate 50 mcg/actuation spray,suspension 2 spray SHOAIB DAILY Qty: 9.9 RF: 4 Discharge Instructions Additional Instructions: You most likely have an enlarged lymph node from the infection causing the sore throat you should receive an appointment for general surgery for next week, if you still have swelling keep this appointment if you have worsening trouble swallowing, difficulty breathing or feel more ill return to the emergency department Medical Decision Making <Tomás Wise DO - Last Filed: 10/03/20 07:57> This is a very pleasant 29-year-old female with a past medical history of GERD, obesity, polycystic ovarian syndrome, who presents today for evaluation of a mass under her chin/neck. Patient states that over the last 24 to 48 hours she felt the rapid development of a structure beneath her chin, she denies difficulty swallowing drinking or breathing but states that she can feel it when she does these things. She denies any fever or chills. There is mild soreness and tenderness in that area, but she denies any other generalized pain in her neck. She denies any tooth pain or dental infection. No other complaints at this time. Physical exam demonstrates a well-circumscribed lesion in the submandibular space which appears to be in the soft tissue still. No redness. By ultrasound guidance will be removed quick needle aspiration, 1 to 2 cc of clear bloody fluid was removed. She tolerated this well. I discussed the case with the surgeon Dr. Lee for potential excision here in the ED, she did recommend CT scan prior to this and instead follow-up on an outpatient basis. We will get a CT scan to help expedite the patient's further outpatient management, with expectant discharge for close management this week in the surgeon's office. He is to be signed out to my colleague Dr. Pedro for follow- up on imaging. The patient at this time shows no signs whatsoever of airway compromise, Ludewig's angina, or other concerning abnormalities. <Gabe Pedro MD - Last Filed: 10/03/20 08:48> pt remains stable, per dr. mason from radiology likely enlarged lymph node. She is swallowing normally and no restricted neck movements. no findings on exam to suggest rpa, well logging captain, epiglotitis. She has had a sore throat so likely reactive enlargement of lymph node. Will tx with prednisone and augmentin, advised to f/u with general surgery if not improved by next week and if worsening to return to the emergency department Imaging Data Radiologic Study: Attestation: I personally reviewed and interpreted this imaging study as follows: Imaging: CT Scan Radiologist's impression: per dr. mason 1cm structure appears most likely to be enlarged lymph node HPI <Tomás Wise DO - Last Filed: 10/03/20 07:57> General Date/Time Provider Initiated Documentation: 10/03/20 07:26 . HPI Narrative: This is a very pleasant 29-year-old female with a past medical history of GERD, obesity, polycystic ovarian syndrome, who presents today for evaluation of a mass under her chin/neck. Patient states that over the last 24 to 48 hours she felt the rapid development of a structure beneath her chin, she denies difficulty swallowing drinking or breathing but states that she can feel it when she does these things. She denies any fever or chills. There is mild soreness and tenderness in that area, but she denies any other generalized pain in her neck. She denies any tooth pain or dental infection. No other complaints at this time. Related Data Home Medications Medication Instructions Recorded Confirmed Mirena 1 ea INTRAUTERINE ONCE #1 implant 05/12/18 10/03/20 omeprazole 40 mg capsule,delayed 40 mg PO DAILY #90 cap 09/14/19 10/03/20 release albuterol sulfate 90 mcg/actuation 2 puff INHALATION Q6H PRN #1 01/11/20 10/03/20 aerosol inhaler inhaler inhalational spacing device #1 each 02/06/20 08/28/20 fluticasone propionate 50 2 spray SHOAIB DAILY #9.9 gm 03/27/20 10/03/20 mcg/actuation nasal spray,suspension amoxicillin-pot clavulanate 1 tab PO BID #14 tab 10/03/20 [Augmentin] prednisone 60 mg PO DAILY 5 Days #15 tab 10/03/20 Previous Rx's Medication Instructions Recorded Mirena 1 ea INTRAUTERINE ONCE #1 implant 05/12/18 omeprazole 40 mg capsule,delayed 40 mg PO DAILY #90 cap 09/14/19 release albuterol sulfate 90 mcg/actuation 2 puff INHALATION Q6H PRN #1 01/11/20 aerosol inhaler inhaler inhalational spacing device #1 each 02/06/20 fluticasone propionate 50 2 spray SHOAIB DAILY #9.9 gm 03/27/20 mcg/actuation nasal spray,suspension amoxicillin-pot clavulanate 1 tab PO BID #14 tab 10/03/20 [Augmentin] prednisone 60 mg PO DAILY 5 Days #15 tab 10/03/20 Allergies Allergy/AdvReac Type Severity Reaction Status Date / Time Environmental Allergy Intermediate Watery, Uncoded 08/28/20 10:38 itchy eyes, swelling General Stated Complaint: Sorethroat LIO: 3 Review of Systems <Tomás Wise DO - Last Filed: 10/03/20 07:57> All systems reviewed & are unremarkable except as noted in HPI and below PFSH <Tomás Wise DO - Last Filed: 10/03/20 07:57> Medical History ADHD (attention deficit hyperactivity disorder) Asthma BMI 60.0-69.9, adult Closed TBI (traumatic brain injury) 11/2017. Concussion with sequelae. E-coli UTI 08/2016. Rx with Nitrofurantoin. GERD (gastroesophageal reflux disease) Insomnia disorder Morbid obesity Polycystic ovarian syndrome 20yo began oligomenorrhea. BMI was 52 at that time. Rx with Glucophage and OCPs or Norethindrone withdrawl, 05/2018: Mirena IUD 09/15/2019. String of pearls on both ovaries. 10/2019 Free Testosterone 1.12 (0.06-1.06). Surgical History Meniscectomy medial meniscus torn: 2013 Family History Mother Neoplasm OVERIAN Father No problems noted. Sister No problems noted. Grandfather Diabetes Grandfather No problems noted. Grandmother Diabetes Grandmother Diabetes Social History Smoking/Tobacco Use Status: Never Second Hand Exposure: No Smoking risk assessment performed?: Yes Alcohol Intake: never Drug use: Never Substance use type: does not use Household members: spouse and other Details: H-Celio Number of Children: 0 Education Level: college Details: no degree current occupation: [employer]. P[employer] Sexually active: Yes Seatbelt use: always Do you feel safe at home: Yes Do you feel safe in your relationship?: Yes Female Reproductive History Menstrual control method: progestin IUCD (OCPs exacerbated headaches after she had a concussion) History History 0 Para Hx # Term Pregnancies Multiple births Hx # Pregnancies Ectopic pregnancies AB induced Hx Number of Living Children AB spontaneous Exam <Tomás Wise DO - Last Filed: 10/03/20 07:57> Narrative Exam Narrative: 1.Const: Well-nourished, Well-developed, appearing stated age, mild obesity 2.Eyes: PERRL, no conjunctival injection, and symmetrical lids. 3.ENT: Atraumatic external nose and ears. Moist MM. Neck: Symmetric, trachea midline, No thyromegaly. Neck insurance palpable lesion in the submandibular region however it appears to all be localized in the soft tissues of this region and not deep. No redness or erythema. Minimal tenderness on palpation. No dental caries, no signs of tooth decay or periapical abscess 4.CVS: +S1/S2, No murmurs or gallops. Peripheral pulses 2+ and equal in all extremities. Brisk capillary refill in all extremities. 5.RESP: Unlabored respiratory effort. Clear to auscultation bilaterally. No wheezes rales or rhonchi 6.GI: Soft, Nontender/Nondistended, No hepatosplenomegaly. No guarding or rebound. 7.MSK: Normocephalic/Atraumatic, Extremities w/o deformity or ttp No cyanosis or clubbing, Normal movement of all extremities 8.Skin: Warm, Dry. No rashes or lesions. 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 Sensation grossly intact, no focal neurologic deficits. 10.Psych: (AAO) x3. Appropriate mood and affect Course <Tomás Wise DO - Last Filed: 10/03/20 07:57> Vital Signs Vital signs: Vital Signs Temperature 36.4 C L 10/03/20 06:54 Pulse 117 H 10/03/20 06:54 Respiratory Rate 18 10/03/20 06:54 Blood Pressure 169/108 H 10/03/20 06:54 Pulse Oximetry 98 10/03/20 06:54 Temperature 36.4 C L 10/03/20 06:54 Pulse 117 H 10/03/20 06:54 Respiratory Rate 18 10/03/20 06:54 Respiratory Effort Non-Labored 10/03/20 06:56 Blood Pressure 169/108 H 10/03/20 06:54 Blood Pressure Position Sitting 10/03/20 06:54 Pulse Oximetry 98 10/03/20 06:54 Oxygen Delivery Method Room Air 10/03/20 06:54 Oxygen Flow Rate 0 10/03/20 06:54 Pain Level 6 10/03/20 06:54 Lab/Test Results Lab/Test Results: POC- Test(urine) Negative Procedures <Tomás Wise DO - Last Filed: 10/03/20 07:57> Abscess I/D Site: Neck Local Anesthetic: Lidocaine 1% and With Epi Amount of anesthesia used (mL): 4 Technique: Needle Aspiration Amount of fluid expressed (mL): 1 Irrigation: No Packing used?: None Sign Out <Tomás Wise DO - Last Filed: 10/03/20 07:57> Sign Out Data: Sign Out Comment: Follow-up on CT scan for evaluation of lesion in the neck tissue, with expectant discharge for outpatient surgical follow-up. Last updated by Tomás Wise DO at 10/03/20 07:58
[2020-10-03] MEDS: Normal Saline - Diluent 50 ML VIAL IV (08:17)
[2020-10-03] MEDS: Omnipaque 350 MG/ML 100 ML BTL IJ (08:17)
[2020-10-03] MEDS: Normal Saline Flush 10 ML SYR IVP (08:18)
--- NOTE | 2020-10-03 08:45 | NUR.NOTE ---
referral faxed to [facility] Nursing Note:
[2020-10-03 08:49] VITALS: BP 157/91; PULSE 97; RESP 18; TEMP 36.7; O2SAT 98
== END 2020-10-03 08:56 | disposition home or self-care (01) ==
PROVIDERS: Emergency Provider Emergency Medicine; PCP Family Medicine
DX: R59.0 Localized enlarged lymph nodes (principal)
CPT/HCPCS: 10160; 70491; 81025; 99282; 99281; J3490

== ENCOUNTER 2020-11-02 16:08 | Emergency (ER) | payer BC, SELFPAY ==
[2020-11-02] VITALS (14 sets, daily range): BP systolic 116–169; BP diastolic 47–147; PULSE 82–108; RESP 8–26; TEMP 37–37.2; O2SAT 95–99
--- NOTE | 2020-11-02 16:00 | RT.EKG_ITS ---
APPROVED REPORT Exam: Resting ECG Patient Location: E HR:90 bpm ECG Measurements Heart Rate 90 AXIS AL 133 P 51 QRSd 95 QRS 68 QT 340 T 58 QTc 416 Conclusion Sinus rhythm...normal P axis, V-rate 60- 99 Physician: Rate 90, sinus rhythm, intervals normal, no significant ST elevations or depressions, no S KOBE, no signs of right heart strain
--- NOTE | 2020-11-02 16:15 | DI.CT_ITS ---
EXAM: CT CHEST PE CTA CLINICAL HISTORY: sob, CP, on control, r/o pe. TECHNIQUE: Imaging Protocol: CT angiography of the chest was performed using pulmonary embolus kalyan col. Multi planar reconstructions were performed. CONTRAST MATERIAL: Intravenous: Omnipaque 350 Contrast volume: 100 cc COMPARISON: CT CT ABDOMEN PELVIS W from 12/25/2018 FINDINGS: CHEST: Study resolution is limited by body habitus and less than optimal contrast bolus timing. PULMONARY ARTERIES: There are no obvious intraluminal filling defects to suggest acute pulmonary embo li. LUNGS: There are no infiltrates nor evidence of pulmonary infarction.. There are no pleural effusions . MEDIASTINUM: There is no hilar nor mediastinal adenopathy. Visualized thyroid unremarkable. CARDIAC: Heart size is upper normal. There is no pericardial effusion.Caliber of the thoracic aorta is within normal limits. There is no evidence of shift of the interventricular septum. PARTIALLY VISUALIZED UPPERMOST ABDOMEN: Hepatic steatosis noted OSSEOUS: No significant osseous lesions.. IMPRESSION: 1. No evidence of obvious acute pulmonary emboli. No evidence of pulmonary infarction.No pulmonary i nfiltrates. No pleural effusions. 2. Hepatic steatosis incidentally noted. 3. RADIATION DOSE DELIVERED: LINK-TO-SR Total DLP DATA REPOSITORY: All CT scans at this facility are submitted to the National Radiology Data Registry (NRDR) Dose Index Registry (DIR) with the [employer] (ACR). RADIATION OPTIMIZATION: All CT scans at this facility use at least one of these dose optimization te chniques: automated exposure control; mA and/or kV adjustment per patient size (includes targeted exa ms where dose is matched to clinical indication); or iterative reconstruction.
[2020-11-02] MEDS: Normal Saline 1,000 ML 1000 ML IV (16:37)
[2020-11-02] MEDS: Omnipaque 350 MG/ML 100 ML BTL IJ (16:50)
[2020-11-02] MEDS: Normal Saline - Diluent 50 ML VIAL IV (16:50)
[2020-11-02 17:00] LABS: Abs Immature Grans 0.08 10^3/uL (0.0-0.06); Absolute Basophil Count 0.04 10^3/uL (0.0-0.2); Absolute Lymphocyte Count 4.05 10^3/uL (1.2-3.4); Absolute Monocyte Count 0.86 10^3/uL (0.1-0.8); Absolute Neutrophil Count 8.23 10^3/uL (1.2-6.7); Basophils % 0.3; Eosinophils % 2.4; HCT 41.3 % (36.0-46.0); HGB 13.5 g/dL (11.2-15.7); Immature Grans % 0.6; Lymphocytes % 29.8; MCH 29.9 pg (27.0-33.0); MCHC 32.7 % (32.0-36.0); MCV 91.6 fL (80-95); MPV 9.4 fL (8.0-11.0); Monocytes % 6.3; Neutrophils % 60.6; Nucleated RBC 0 %; Platelet Count 332 10^3/uL (130-400); RBC 4.51 10^6/uL (3.93-5.22); RDW 13.2 % (11.7-14.6); RDW-SD 44.6 fL; WBC 13.58 10^3/uL (4.4-10.8)
[2020-11-02 17:01] LABS: Absolute Eosinophil Count 0.33 10^3/uL (0.0-0.7)
[2020-11-02 17:14] LABS: PTT Activated 29.5 sec (21.0-27.5); Prothrombin Time 9.8 sec (9.3-11.0)
--- NOTE | 2020-11-02 17:14 | DI.VRAD_ITS ---
Addendum created by Darlyn Murrell MD on 11/02/2020 5:31:14 PM EST: I discussed case findings with SHIRAZ JOSEPH 11/02/2020 5:31 PM EST. Initial report created on 11/02/2020 5:13:57 PM EST: PROCEDURE INFORMATION: Exam: CT Angiography Chest With Contrast Exam date and time: 11/02/2020 4:30 PM Age: 29 years old Clinical indication: Shortness of breath; Chest pain; Patient HX: SOB, cp, on control; Additional info: R/O pe TECHNIQUE: Imaging protocol: Computed tomographic angiography of the chest with intravenous contrast. 3D rendering (Not supervised by radiologist): MIP and/or 3D reconstructed images were created by the technologist. COMPARISON: No relevant prior studies available. FINDINGS: Pulmonary arteries: Normal. No pulmonary emboli. Aorta: Unremarkable. No aortic aneurysm. No aortic dissection. Lungs: Unremarkable. No consolidation. No masses. Pleural space: Unremarkable. No pneumothorax. No pleural effusion. Heart: Unremarkable. No cardiomegaly. No pericardial effusion. Mediastinal space: Small hiatal hernia. Lymph nodes: Shotty bilateral axillary adenopathy.. Liver: Fatty liver. Bones/joints: Unremarkable. No acute fracture. Soft tissues: Unremarkable. Other findings: Respiratory motion noted. IMPRESSION: No evidence for pulmonary embolus. Dictated and Authenticated by: Darlyn Murrell MD. Ordering:KARIN England MD
[2020-11-02 17:28] LABS: ALT 38 U/L (14-59); AST 16 U/L (15-37); Albumin 3.6 g/dL (3.4-5.0); Alkaline Phosphatase 79 U/L (46-116); Anion Gap 9.5 mmol/L (3-11); BUN 16 mg/dL (7-18); Bilirubin, Total 0.2 mg/dL (0.2-1.0); CO2 25.5 mmol/L (21.0-32.0); CREATININE 0.77 mg/dL (0.55-1.02); Calcium 8.8 mg/dL (8.5-10.1); Chloride 106 mmol/L (98-107); Glucose 100 mg/dL (74-106); NT-proBNP 20 pg/mL (<300); Potassium 3.6 mmol/L (3.5-5.1); Sodium 141 mmol/L (136-145); TSH (W/Ref FT4) 3.39 uIU/mL (0.36-3.74); Total Protein 7.5 g/dL (6.4-8.2)
--- NOTE | 2020-11-02 17:31 | W.ED.GENAD ---
Discharge Plan Disposition Patient Disposition: HOME Condition: Good Discharge Details Clinical Impression: Tachycardia, Chest pain, Heart palpitations Primary Care Provider: Kimberly Reis ED Provider: Tomás Wise Home Meds and New Rx's Prescriptions: Continued ibuprofen 800 mg tablet 800 mg PO Q8H PRN (Reason: pain) Qty: 30 RF: 0 Mirena 1 EACH intrauterine device 1 ea Intrauterine ONCE Qty: 1 RF: 0 omeprazole 40 mg capsule,delayed release(DR/EC) 40 mg PO DAILY Qty: 90 RF: 4 albuterol sulfate [ProAir HFA] 90 mcg/actuation HFA aerosol inhaler 2 puff Inhalation Q6H PRN Qty: 1 RF: 6 (DME) Iraj Aerosol Blaine Enhancer Spacer See Rx Instructions .ROUTE .MEDSUPPLY Qty: 1 RF: 0 fluticasone propionate 50 mcg/actuation spray,suspension 2 spray SHOAIB DAILY Qty: 9.9 RF: 4 multivitamin Tablet 1 tab PO DAILY RF: 0 Discharge Instructions Instructions: Chest Pain (ED), Heart Palpitations (ED) Additional Instructions: At this time your CT scan shows no signs of clot, pneumonia or other significant abnormality. Your heart rate has notably improved here after fluids. Your work-up shows no signs of heart attack. The heart monitor has been placed, please follow-up closely with your family doctor for reassessment and reevaluation of this. Please drink plenty of fluids. If you notice any worsening of your symptoms, or any new symptoms such as vomiting, diarrhea, fever, chills, shortness of breath, chest pain, numbness, weakness, or fainting , please return immediately to the emergency department for reevaluation. Please follow up with your primary care provider as soon as possible for reassessment and reevaluation. As always, it was a pleasure participating in your medical care today. Referrals: Kimberly Reis MD [Primary Care Provider] - Medical Decision Making 29-year-old female with a past medical history of morbid obesity, asthma, PCOS, presents today for palpitations, chestpain that is pleuritic with occasional shortness of breath. Patient states that for the last 2 weeks she has had intermittent episodes of increased heart rate, with a maximum rate of 156, but normally in the 110s to 120s, seemingly precipitated by activity. She admits to a pleuritic chest pain with deep breathing, but she denies any cough, fever or chills. She denies any unilateral calf tenderness. She does admit to general chronic soreness of her legs stating that she has been walking 3 miles a day every day which is made her legs well but more sore but otherwise denies any trauma, long trips, surgeries or procedures. She does take the Mirena device for contraceptive component for the PCOS. She denies any history of PE or blood clots. She denies any personal history of cardiac disease. She does not smoke. She denies any other complaints at this time. No other modifying factors. She is concerned that a component of her symptoms may be her increased activity. Physical exam is unremarkable, no unilateral calf swelling or tenderness. No calf tenderness to speak of. Chest exam is benign, no wheezes rales or rhonchi. Mild tachycardia on exam, but this appears to be sinus on EKG. Differential includes mild dehydration, infectious etiology seems unlikely as she has no fever or chills. She did have a small abscess/cyst vaginally that has been managed by OB, but otherwise clinically shows no signs of systemic infection. Highest likelihood is an intercostal etiology causing her chest pain secondary to her increased activity and her increased heart rate likely related to her current body habitus in conjunction with general activity. However, also on the differential is PE, cardiac dysrhythmia, dehydration is of concern. Will get CTA, gently rehydrate, give a breathing treatment for potential reactive airway as a litmus test, monitor closely and reassess. 6:55 PM Laboratory work-up has returned, minimal white count at 13, no bandemia, she continues to be afebrile, electrolytes normal renal function is good proBNP normal suggesting no signs of heart strain, troponin normal, thyroid function normal. CTA was read as negative per virtual radiology, I did contact them and personally reviewed the images with them, they see no evidence of pulmonary emboli or other significant pulmonary abnormality. Patient felt rate came down to the 80s here in the ED, and then gradually went back up to the 90s to low 100s. She feels well. We did give her breathing treatment this did not change her chest pain or symptoms otherwise. Chest pain is notably minimal at this time. With no other significant abnormalities I do feel that she can be discharged, I suspect mild dehydration, in conjunction with her normal state is likely cause of her symptoms, and intercostal strain the likely cause of her mild chest pain. However we will give a Holter monitor for 48 hours for home use for further assessment on an outpatient basis with her PCP. Recommended plenty of fluids at home, discussed red flags which return. I have extensively reviewed the treatment plan and discharge instructions with the patient. I have addressed all patient concerns at this time. The patient was made aware of what symptoms to monitor for that would warrant a return to the emergency department. Discussed the plan with the patient, they demonstrate verbal understanding and agreement with our assessment and plan at this time. FINDINGS: Pulmonary arteries: Normal. No pulmonary emboli. Aorta: Unremarkable. No aortic aneurysm. No aortic dissection. Lungs: Unremarkable. No consolidation. No masses. Pleural space: Unremarkable. No pneumothorax. No pleural effusion. Heart: Unremarkable. No cardiomegaly. No pericardial effusion. Mediastinal space: Small hiatal hernia. Lymph nodes: Shotty bilateral axillary adenopathy.. Liver: Fatty liver. Bones/joints: Unremarkable. No acute fracture. Soft tissues: Unremarkable. Other findings: Respiratory motion noted. IMPRESSION: No evidence for pulmonary embolus. Thank you for allowing us to participate in the care of your patient. Dictated and Authenticated by: Darlyn Murrell MD 11/02/2020 5:13 PM Eastern Time ([place] & [place]) EKG 16: 24 Rate 90, sinus rhythm, intervals normal, no significant ST elevations or depressions, no STEMI, no signs of right heart strain HPI General Date/Time Provider Initiated Documentation: 11/02/20 16:12. HPI Narrative: 29-year-old female with a past medical history of morbid obesity, asthma, PCOS, presents today for palpitations, chestpain that is pleuritic with occasional shortness of breath. Patient states that for the last 2 weeks she has had intermittent episodes of increased heart rate, with a maximum rate of 156, but normally in the 110s to 120s, seemingly precipitated by activity. She admits to a pleuritic chest pain with deep breathing, but she denies any cough, fever or chills. She denies any unilateral calf tenderness. She does admit to general chronic soreness of her legs stating that she has been walking 3 miles a day every day which is made her legs well but more sore but otherwise denies any trauma, long trips, surgeries or procedures. She does take the Mirena device for contraceptive component for the PCOS. She denies any history of PE or blood clots. She denies any personal history of cardiac disease. She does not smoke. She denies any other complaints at this time. No other modifying factors. She is concerned that a component of her symptoms may be her increased activity. Related Data Home Medications Medication Instructions Recorded Confirmed Mirena 1 ea INTRAUTERINE ONCE #1 implant 05/12/18 11/02/20 omeprazole 40 mg capsule,delayed 40 mg PO DAILY #90 cap 09/14/19 11/02/20 release albuterol sulfate 90 mcg/actuation 2 puff INHALATION Q6H PRN #1 01/11/20 11/02/20 aerosol inhaler inhaler inhalational spacing device #1 each 02/06/20 11/02/20 fluticasone propionate 50 2 spray SHOAIB DAILY #9.9 gm 03/27/20 11/02/20 mcg/actuation nasal spray,suspension ibuprofen 800 mg tablet 800 mg PO Q8H PRN #30 tab 10/10/20 11/02/20 multivitamin 1 tab PO DAILY 11/02/20 11/02/20 Previous Rx's Medication Instructions Recorded Mirena 1 ea INTRAUTERINE ONCE #1 implant 05/12/18 omeprazole 40 mg capsule,delayed 40 mg PO DAILY #90 cap 09/14/19 release albuterol sulfate 90 mcg/actuation 2 puff INHALATION Q6H PRN #1 01/11/20 aerosol inhaler inhaler inhalational spacing device #1 each 02/06/20 fluticasone propionate 50 2 spray SHOAIB DAILY #9.9 gm 03/27/20 mcg/actuation nasal spray,suspension ibuprofen 800 mg tablet 800 mg PO Q8H PRN #30 tab 10/10/20 Allergies Allergy/AdvReac Type Severity Reaction Status Date / Time Environmental Allergy Intermediate Watery, Uncoded 11/02/20 16:21 itchy eyes, swelling General Stated Complaint: Chest Pain LIO: 2 Review of Systems All systems reviewed & are unremarkable except as noted in HPI and below PFSH Medical History (Updated 11/02/20 @ 18:58 by Tomás Wise DO) ADHD (attention deficit hyperactivity disorder) Asthma BMI 60.0-69.9, adult Closed TBI (traumatic brain injury) 11/2017. Concussion with sequelae. E-coli UTI 08/2016. Rx with Nitrofurantoin. GERD (gastroesophageal reflux disease) Insomnia disorder Morbid obesity Polycystic ovarian syndrome 20yo began oligomenorrhea. BMI was 52 at that time. Rx with Glucophage and OCPs or Norethindrone withdrawl, 05/2018: Mirena IUD 09/15/2019. String of pearls on both ovaries. 10/2019 Free Testosterone 1.12 (0.06-1.06). Tachycardia Vulvar abscess Surgical History Meniscectomy medial meniscus torn: 2013 Family History Mother Neoplasm OVERIAN Father No problems noted. Sister No problems noted. Grandfather Diabetes Grandfather No problems noted. Grandmother Diabetes Grandmother Diabetes Social History Smoking/Tobacco Use Status: Never Second Hand Exposure: No Smoking risk assessment performed?: Yes Alcohol Intake: never Drug use: Never Substance use type: does not use Household members: spouse and other Details: H-Celio Number of Children: 0 Education Level: college Details: no degree current occupation: [employer]. P[employer] Sexually active: Yes Seatbelt use: always Do you feel safe at home: Yes Do you feel safe in your relationship?: Yes Female Reproductive History Menstrual control method: progestin IUCD (OCPs exacerbated headaches after she had a concussion) History History 0 Para Hx # Term Pregnancies Multiple births Hx # Pregnancies Ectopic pregnancies AB induced Hx Number of Living Children AB spontaneous Course Vital Signs Vital signs: Vital Signs Temperature 37.0 C 11/02/20 16:17 Pulse 108 H 11/02/20 16:17 Respiratory Rate 22 11/02/20 16:17 Blood Pressure 160/147 H 11/02/20 16:17 Pulse Oximetry 98 11/02/20 16:17 Temperature 37.0 C 11/02/20 16:17 Temperature Source Skin 11/02/20 16:17 Pulse 108 H 11/02/20 16:17 Respiratory Rate 22 11/02/20 16:23 Respiratory Effort Non-Labored 11/02/20 16:23 Respiratory Depth Normal 11/02/20 16:23 Respiratory Pattern Normal 11/02/20 16:23 Blood Pressure 160/147 H 11/02/20 16:17 Blood Pressure Position Sitting 11/02/20 16:17 Pulse Oximetry 98 11/02/20 16:17 Oxygen Delivery Method Room Air 11/02/20 16:17 Oxygen Flow Rate 0 11/02/20 16:17 Pain Level 5 11/02/20 16:23 Lab/Test Results Lab/Test Results: Laboratory Tests Range/Units 11/02/20 11/02/20 16:37 16:37 WBC (4.4-10.8) 10^3/uL 13.58 H RBC (3.93-5.22) 10^6/uL 4.51 Hgb (11.2-15.7) g/dL 13.5 Hct (36.0-46.0) % 41.3 MCV (80-95) fL 91.6 MCH (27.0-33.0) pg 29.9 MCHC (32.0-36.0) % 32.7 RDW (11.7-14.6) % 13.2 Plt Count (130-400) 10^3/uL 332 MPV (8.0-11.0) fL 9.4 Immature Gran % 0.6 Neutrophils % 60.6 Lymphocytes % 29.8 Monocytes % 6.3 Eosinophils % 2.4 Basophils % 0.3 Nucleated RBC % % 0 Absolute Neutrophils (1.2-6.7) 10^3/uL 8.23 H Absolute Lymphocytes (1.2-3.4) 10^3/uL 4.05 H Absolute Monocytes (0.1-0.8) 10^3/uL 0.86 H Absolute Eosinophils (0.0-0.7) 10^3/uL 0.33 Absolute Basophils (0.0-0.2) 10^3/uL 0.04 PT (9.3-11.0) sec 9.8 INR (0.9-1.1) 1.0 APTT (21.0-27.5) sec 29.5 H
[2020-11-02 17:37] LABS: Troponin I < 0.05 ng/mL (<0.06)
[2020-11-02] MEDS: Albuterol/Ipratropium 3 ML UPD VIAL UPD (17:45)
== END 2020-11-02 19:35 | disposition home or self-care (01) ==
PROVIDERS: Emergency Provider Student in an Organized Health Care Education/Training Program; PCP Family Medicine
DX: R00.0 Tachycardia, unspecified (principal); R07.2 Precordial pain; R00.2 Palpitations; E86.0 Dehydration
CPT/HCPCS: 36415; 71275; 80053; 93005; 94640; 96360; 99285; 83880; 84443; 84484; 85025; 85610; 85730; 93010; 93225; 99281; J3490; J7620

== ENCOUNTER 2020-11-02 18:18 | Outpatient (RCR) | payer BC, SELFPAY ==
--- NOTE | 2020-11-02 18:15 | HOLTER_ITS ---
APPROVED REPORT Exam Type: HOLTER MONITOR APPLICATION Patient Location: O Conclusion This was a 48-hour Holter monitor ordered for symptoms of tachycardia, palpitations, chest pain Rhythm throughout was sinus. Average heart rate was 102, maximum 156, minimum 78 There were no atrial or ventricular dysrhythmias There was no atrial fibrillation, no pauses greater than 3 seconds, no high-grade AV block No patient symptoms were reported
== END 2020-11-11 23:59 | disposition home or self-care (01) ==
LOC: RT 18:18
PROVIDERS: PCP Family Medicine; Visit Provider Student in an Organized Health Care Education/Training Program
DX: R00.0 Tachycardia, unspecified (principal); R00.2 Palpitations; R07.9 Chest pain, unspecified
CPT/HCPCS: 93225; 93226

== ENCOUNTER 2021-10-24 17:47 | Outpatient (REF) | payer BC, SELFPAY ==
[2021-10-26 14:58] LABS: COVID-19 RT-PCR UVMMC Result Negative (Negative)
== END 2021-10-24 17:48 | disposition home or self-care (01) ==
LOC: LBN 17:47
PROVIDERS: PCP Family Medicine; Visit Provider Nurse Practitioner Family
DX: Z20.822 Contact with and (suspected) exposure to COVID-19 (principal)
CPT/HCPCS: U0003

== ENCOUNTER → 2022-09-26 18:07 | Outpatient (CLI) | payer BC, SELFPAY ==
--- NOTE | 2022-09-26 18:00 | DI.RAD_ITS ---
Exam(s) XR CHEST 2V PA LATERAL EXAM: XR CHEST 2V PA LATERAL CLINICAL HISTORY: cough, r/o pneumonia TECHNIQUE: 2D digital imaging was performed. COMPARISON: No exams were available for comparison FINDINGS: MEDIASTINUM: Normal. HEART: Normal. PULMONARY VASCULATURE: Normal. LUNGS: Clear. PLEURAL SPACE: No pleural effusion or pneumothorax. BONE:Unremarkable for age. IMPRESSION: No acute abnormality. DATA REPOSITORY: RADIATION DOSE DELIVERED:
--- NOTE | 2022-09-26 18:38 | DI.VRAD_ITS ---
PROCEDURE INFORMATION: Exam: XR Chest Exam date and time: 09/26/2022 6:13 PM Age: 31 years old Clinical indication: Cough and shortness of breath; Patient HX: Cough, SOB TECHNIQUE: Imaging protocol: Radiologic exam of the chest. Views: 2 views. COMPARISON: 1. CT CHEST PE CTA 11/02/2020 4:[address] NECK W 10/03/2020 8:[address] ABDOMEN PELVIS W 12/25/2018 12:36 AM FINDINGS: Lungs: Unremarkable. No consolidation. Pleural spaces: Unremarkable. No pleural effusion. No pneumothorax. Heart/Mediastinum: Unremarkable. No cardiomegaly. Bones/joints: Unremarkable. IMPRESSION: No acute findings. Dictated and Authenticated by: Marlon Martinez MD. Ordering:ADRIAN Guo MD
== END ==
PROVIDERS: PCP Nurse Practitioner Family; Visit Provider Physician Assistant
DX: R05.8 Other specified cough (principal)
CPT/HCPCS: 71046

== ENCOUNTER 2023-04-10 01:28 | Outpatient (CLI) | payer BC, SELFPAY ==
[2023-04-10 09:15] LABS: ALT 44 U/L (14-59); AST 24 U/L (15-37); Albumin 3.5 g/dL (3.4-5.0); Alkaline Phosphatase 84 U/L (46-116); Anion Gap 9.3 mmol/L (3-11); BUN 13 mg/dL (7-18); Bilirubin, Total 0.3 mg/dL (0.2-1.0); CO2 25.7 mmol/L (21.0-32.0); CREATININE 0.8 mg/dL (0.55-1.02); Calcium 8.7 mg/dL (8.5-10.1); Calculated LDL 80 mg/dL (<100); Chloride 105 mmol/L (98-107); Cholesterol 132 mg/dL (<200); Estimated GFR 100.96 (mL/min/1.73m2); Glucose 102 mg/dL (74-106); HDL Cholesterol 41 mg/dL (40-60); Potassium 3.9 mmol/L (3.5-5.1); Sodium 140 mmol/L (136-145); TSH (W/Ref FT4) 2.84 uIU/mL (0.36-3.74); Total Protein 7.6 g/dL (6.4-8.2); Triglyceride 59 mg/dL (<150)
== END 2023-04-10 01:29 | disposition home or self-care (01) ==
PROVIDERS: PCP Nurse Practitioner Family; Visit Provider Nurse Practitioner Family
DX: Z00.00 Encounter for general adult medical examination without abnormal findings (principal)
CPT/HCPCS: 36415; 80053; 80061; 84443

== ENCOUNTER 2023-06-23 16:34 | Outpatient (REF) | payer BC, SELFPAY ==
--- NOTE | 2023-06-23 15:30 | PAPFT_PTH ---
PATIENT: Constance Acevedo LOC: [facility] U#:[id number] AGE/SX: 32/F ROOM: RE06/23/[address]: Lorin Mueller : 1990 BED: DIS: 06/23/2023 SPEC #: [id number] RECD: 06/23/23 17:23 STATUS: MITA RELeoncio #: [id number] JANUSZ: 06/23/23 15:[address]: Lorin Mueller DEPT: [facility] Cytology RECD BY: Marta Merrill ENTERED: 06/23/23 17:23 SP TYPE: PAPFT OTHR DR: Brandon Lopez DNP Tissues: 1 - CX/ENDOCX FOR PAP SMEARS Procedures: PAP THIN PREP/[facility] Screening HPV DNA PROBE Comments: [id number]
== END 2023-06-23 16:35 | disposition home or self-care (01) ==
LOC: LBN 16:34
PROVIDERS: PCP Nurse Practitioner Family; Visit Provider Obstetrics & Gynecology Gynecology
DX: R30.0 Dysuria (principal); Z12.4 Encounter for screening for malignant neoplasm of cervix; Z11.51 Encounter for screening for human papillomavirus (HPV)
CPT/HCPCS: 88142; 87086; 87624

== ENCOUNTER 2023-08-19 14:50 | Outpatient (CLI) | payer BC, SELFPAY ==
[2023-08-19 13:37] LABS: HCT 41.8 % (36.0-46.0); MCH 30.2 pg (27.0-33.0); MCHC 33.5 % (32.0-36.0); MCV 90 fL (80-95); MPV 9.3 fL (8.0-11.0); Platelet Count 342 10^3/uL (130-400); RBC 4.63 10^6/uL (3.93-5.22); RDW 12.8 % (11.7-14.6); RDW-SD 41.9 fL
== END 2023-08-19 14:51 | disposition home or self-care (01) ==
LOC: LBO 14:51
PROVIDERS: PCP Nurse Practitioner Family; Visit Provider Obstetrics & Gynecology Gynecology
DX: N93.9 Abnormal uterine and vaginal bleeding, unspecified (principal)
CPT/HCPCS: 36415; 85027

== ENCOUNTER → 2023-10-30 00:18 | Outpatient (CLI) | payer BC, SELFPAY ==
--- NOTE | 2023-10-30 08:36 | DI.RAD_ITS ---
Exam(s) XR HAND RT COMPLETE EXAM: XR HAND RT COMPLETE CLINICAL HISTORY: mass at base of index finger, changing in size,r22.31. TECHNIQUE: 2D digital imaging was performed. COMPARISON: No exams were available for comparison FINDINGS: 3 views No evidence of fracture no subluxation. Bone density normal. No osseous lesions nor erosions and no degenerative changes. There is some soft tissue swelling at the base of the index finger volar aspect where there is a skin marker. There is no radiopaque foreign body seen at this level and no soft tissue calcifications. IMPRESSION: As above. DATA REPOSITORY: RADIATION DOSE DELIVERED:
== END ==
PROVIDERS: PCP Nurse Practitioner Family; Visit Provider Nurse Practitioner Family
DX: R22.31 Localized swelling, mass and lump, right upper limb (principal)
CPT/HCPCS: 73130

== ENCOUNTER 2023-12-30 08:22 | Day surgery (SDC) | payer BC, SELFPAY ==
--- NOTE | 2023-12-30 07:34 | PDOC.DSDIS_ITS ---
Date of service: 12/30/23 Time of Service: 07:34 Discharge Plan Disposition Patient Disposition: Home Condition: Good Discharge Details Reason For Visit: Excision Cyst Attending Provider: Ty Collins Primary Care Provider: Brandon Stark Home Meds and New Rx's Prescriptions: New acetaminophen 500 mg tablet 1,000 mg PO TID Qty: 90 0RF ibuprofen 600 mg tablet 600 mg PO TID PRN (Reason: pain) Qty: 90 0RF Continued fluticasone propionate 50 mcg/actuation spray,suspension 2 spray SHOAIB DAILY Qty: 9.9 4RF Rx Instructions: administer into each nostril lisinopril 10 mg tablet 10 mg PO DAILY MDD 40 mg 90 Days Qty: 90 4RF Rx Instructions: Take one tablet daily by mouth with BP monitoring at home. Mounjaro 2.5 mg/0.5 mL pen injector 2.5 mg subcut QWEEK MDD 2.5 mg 28 Days Qty: 2 1RF Hold Instructions: Home Medication placed on hold at Doctor's office Rx Instructions: Inject 2.5 mg subcutaneously once weekly Mounjaro 7.5 mg/0.5 mL pen injector 7.5 mg subcut QWEEK MDD 7.5 mg 28 Days Qty: 2 6RF Rx Instructions: Inject 7.5 mg subcutaneously once daily (DME) Iraj Aerosol Radford Enhancer Spacer See Rx Instructions .ROUTE .MEDSUPPLY Qty: 1 0RF Rx Instructions: As directed norethindrone-ethin estradiol 1-35 mg-mcg tablet 1 tab PO DAILY Qty: 84 4RF omeprazole 40 mg capsule,delayed release(DR/EC) 40 mg PO DAILY Qty: 90 3RF Mounjaro 5 mg/0.5 mL pen injector 5 mg subcut QWEEK 28 Days Qty: 2 6RF Hold Instructions: Changed by Provider Rx Instructions: Inject 5.0 mg subcutaneously once weekly as directed albuterol sulfate [ProAir HFA] 90 mcg/actuation HFA aerosol inhaler 2 puff Inhalation Q6H PRN Qty: 1 6RF multivitamin Tablet 1 tab PO DAILY Discontinued ibuprofen 800 mg tablet 800 mg PO Q8H PRN (Reason: pain) Qty: 30 0RF Discharge Instructions Additional Instructions: Cyst Excision Discharge Instructions Activity: You should keep the hand elevated as much as possible for the first few days. You may use the other fingers as tolerated but avoid trying to do too much too soon. You may increase activities after the dressing has been removed. Dressing/Cast: You may remove your dressing after [address] a band-aid over the wound if desired. You may get the incision wet after 48 hours. Medications: - You should take Tylenol and Ibuprofen for baseline pain control. - You may apply ice over the finger. Follow-up: 7-10 days Referrals: yT Collins MD [ [facility] STAFF PHYSICIAN] - Activity:: Activity as Tolerated Remove Dressings/Wound Care:: 48 hours Shower/Bathe:: 48 hours Diet:: As Tolerated Discharge Orders Discharge Orders: Discharge Order (Routine); Ordered 12/30/23 Ordered By: Tae Garcia DS: Diagnosis Discharge Diagnosis (1) Mass of right hand: Status: Acute
[2023-12-30 08:35] VITALS: BP 157/85; PULSE 104; RESP 18; TEMP 36.7; O2SAT 98
[2023-12-30] MEDS: Lidocaine 1% Multi-Dose W/EPI 1/100,000 50 ML VIAL (09:34)
[2023-12-30] MEDS: Sodium Bicarbonate 50 MEQ/50 ML VIAL (09:34)
[2023-12-30 09:54] VITALS: BP 123/73; PULSE 102; RESP 18; TEMP 36.4; O2SAT 98
--- NOTE | 2023-12-30 13:21 | W.PM.OP ---
Date of service: 12/30/23 Time of Service: 09:30 Operative Note Operative Note DATE OF PROCEDURE: 12/30/23 PRE-OP DIAGNOSIS: Right Index Finger Mass POST-OP DIAGNOSIS: other (Right Index Finger Ganglion Cyst of Tendon Sheath) PROCEDURE: Excision of Ganglion Cyst from Right Index Finger SURGEON: Ty Collins ANESTHESIA TYPE: Local By Surgeon Refer to Anesthesia Record ESTIMATED BLOOD LOSS: 5 PATHOLOGY: none sent COMPLICATIONS: None Patient was transported to: same day Patient's condition: stable Indications: I have seen Constance in clinic for symptoms of a trigger finger. The catching, clicking, locking, and pain limited function. The diagnosis of trigger finger was evident. The symptoms had not responded to conservative measures. I discussed trigger finger release with the patient. I reviewed the risks of the procedure to include, but not limited to, bleeding, infection, pain, stiffness, incomplete release, damage to nerves or vessels, continued catching, recurrence. Despite these risks, the patient elected to proceed. Findings: There was a large ganglion cyst arising from the flexor tendon sheath of the index finger. This was removed in whole. The flexor tendons were inspected and were without defect. She was able to move the finger without any catching, clicking, or locking. Procedure Description: Constance was greeted in the preoperative holding area where the correct side was identified and marked. The consent was reviewed with the patient and signed. All questions were answered. She was taken back to the operating room. The patient was placed into the supine position on the operating room table with the right arm on an arm board. All bony prominences were well padded. No prophylactic antibiotics were administered since this was a clean, elective hand surgical case. The right arm was then prepped with Chloraprep and draped in a standard fashion with extremity drape. A timeout to confirm correct identity, side and site, procedure, allergies, anesthesia, and medical concerns was performed. The surgical site was marked as a longitudinal incision directly over the palpable mass. This area was then anesthetized with 1% Lidocaine with epinephrine and buffered with sodium bicarbonate. The patient tolerated this well and once the anesthetic had setup, the procedure began. A longitudinal incision was made through skin only, approximately 1cm. The deep tissues were dissected bluntly. The mass was easily palpable and the clear structure of the cyst was visible. Soft tissues were dissected from around the cyst. They were retracted either side and the cyst was easily visible and seen arising from the flexor tendon sheath. The cyst was then entered and drained. The cyst capsule was removed in whole and trimmed off of the flexor tendon sheath. The flexor tendons were inspected and showed no signs of damage. I then had the patient bring the finger through complete range of motion and there was no clicking, triggering, or catching. The wound was then irrigated and the skin was closed with a 4-0 Nylon. This was dressed with gauze and a Conform dressing. The patient tolerated the procedure well and was returned to the Same Day Surgery area in a stable condition suffering no known complication.
--- NOTE | 2023-12-30 13:41 | W.ANESPOSTOP ---
Postoperative Evaluation Date, Time and Location Date Performed: 12/30/23 Vital Signs Most Recent Imported Vital Signs: Most Recent Vital Signs Temp Pulse Resp BP Pulse Ox 36.4 C L 102 H 18 123/73 98 12/30/23 09:54 12/30/23 09:54 12/30/23 09:54 12/30/23 09:54 12/30/23 09:54 Pain Score Most Recent Pain Score: Most Recent Pain Score Pain Level 0 12/30/23 09:54
== END 2023-12-30 10:18 | disposition home or self-care (01) ==
PROVIDERS: PCP Nurse Practitioner Family; Visit Provider Student in an Organized Health Care Education/Training Program
PROC: (CPT 26160; principal; 2023-12-30 11:15)
DX: M67.48 Ganglion, other site (principal)
CPT/HCPCS: 26160; J2004

== ENCOUNTER 2024-02-18 18:09 | Emergency (ER) | payer BC, SELFPAY ==
[2024-02-18 18:15] VITALS: BP 170/85; PULSE 108; RESP 16; TEMP 36.2; O2SAT 99
--- NOTE | 2024-02-18 18:15 | DI.CT_ITS ---
Exam(s) CT ABDOMEN PELVIS WO EXAM: CT ABDOMEN PELVIS WO CLINICAL HISTORY: abd pain with diarrhea. TECHNIQUE: Imaging Protocol: Axial computed tomography images with coronal and sagittal reformatted images were created and reviewed. Oral: / no COMPARISON: CT CT ABDOMEN PELVIS W from 12/25/[address] CHEST PE CTA from 11/02/2020 FINDINGS: Exam is limited by patient body habitus. Lung Bases: No acute findings. Liver: Moderate hepatic steatosis. No suspicious mass. Gallbladder and biliary tract: No radiodense calculus or biliary dilation. Pancreas: Normal density, no abnormal calcifications or inflammatory process. Spleen: Normal. Kidneys: Normal size, contour and axis. No radiodense stones or obstructive uropathy. No suspicious m asses seen. Adrenal glands: No masses seen. Lymph nodes: Within normal limits. Vasculature: Abdominal aorta non-dilated. Soft tissues: Unremarkable. Bladder: No wall thickening. No mass or calculi. Bowel: No obstruction or bowel wall thickening. Appendix normal. Peritoneal cavity: No ascites, collection or mesenteric inflammatory response. Reproductive organs: Unremarkable. Bones: Unremarkable for age. IMPRESSION: No acute abnormality in the abdomen or pelvis. Moderate hepatic steatosis RADIATION DOSE DELIVERED: 2,127.44mGy.cm Total DLP DATA REPOSITORY: All CT scans at this facility are submitted to the National Radiology Data Registry (NRDR) Dose Index Registry (DIR) with the [employer] (ACR). RADIATION OPTIMIZATION: All CT scans at this facility use at least one of these dose optimization te chniques: automated exposure control; mA and/or kV adjustment per patient size (includes targeted exa ms where dose is matched to clinical indication); or iterative reconstruction.
[2024-02-18 18:34] LABS: Bilirubin Negative (Negative); Blood Negative (Negative); Clarity Clear (Clear); Glucose Negative (Negative); Ketones Negative (Negative); Leukocyte Esterase Negative (Negative); Nitrite Negative (Negative); Specific Gravity >= 1.030 (1.005-1.025); Urobilinogen 0.2 mg/dL (Up to 0.2); pH 5.5 (5-8)
[2024-02-18 18:45] LABS: HCT 41.3 % (36.0-46.0); HGB 13.5 g/dL (11.2-15.7); MCH 29.4 pg (27.0-33.0); MCHC 32.7 % (32.0-36.0); MCV 90 fL (80-95); MPV 9.2 fL (8.0-11.0); Platelet Count 303 10^3/uL (130-400); RBC 4.59 10^6/uL (3.93-5.22); RDW-SD 42.5 fL; WBC 13.06 10^3/uL (4.4-10.8)
--- NOTE | 2024-02-18 18:52 | ED.GENADUL_ITS ---
Discharge Plan Disposition Patient Disposition: Home Condition: Stable Discharge Details Clinical Impression: Diarrhea Primary Care Provider: Brandon Stark ED Provider: Courtney Harrell Home Meds and New Rx's Prescriptions: New ondansetron 4 mg tablet,disintegrating 4 mg PO Q8H PRNQty: 5 0RF Continued fluticasone propionate 50 mcg/actuation spray,suspension 2 spray SHOAIB DAILY Qty: 9.9 4RF Rx Instructions: administer into each nostril lisinopril 10 mg tablet 10 mg PO DAILY MDD 40 mg 90 Days Qty: 90 4RF Rx Instructions: Take one tablet daily by mouth with BP monitoring at home. Mounjaro 7.5 mg/0.5 mL pen injector 7.5 mg subcut QWEEK MDD 7.5 mg 28 Days Qty: 2 6RF Rx Instructions: Inject 7.5 mg subcutaneously once daily (DME) Iraj Aerosol [place]oc[place]ont[place] Enhancer Spacer See Rx Instructions .ROUTE .MEDSUPPLY Qty: 1 0RF Rx Instructions: As directed norethindrone-ethin estradiol 1-35 mg-mcg tablet 1 tab PO DAILY Qty: 84 4RF omeprazole 40 mg capsule,delayed release(DR/EC) 40 mg PO DAILY Qty: 90 3RF albuterol sulfate [ProAir HFA] 90 mcg/actuation HFA aerosol inhaler 2 puff Inhalation Q6H PRN Qty: 1 6RF multivitamin Tablet 1 tab PO DAILY Discharge Instructions Instructions: Acute Diarrhea (ED) Additional Instructions: Please call [facility] first thing in the morning to schedule a follow up appointment in the next week or so. Your diarrhea may be due to your Mounjaro, so I advise you discuss this with your PCP. Stay well-hydrated, drinking plenty of electrolyte rich fluids such as G atorlyte. Be sure to eat frequent small meals thoughout the day to avoid overfilling your stomach. You may use the Zofran prescribed as needed for severe nausea only. Return to emergency care if develop new severe abdominal pain, uncontrollable vomiting, fevers associated with your belly pain, blood in your stool, or if you are very worried and need to be rechecked again immediately Referrals: Brandon Stark, QUALITY INSPECTOR [Primary Care Provider] - HPI General Date/Time Provider Initiated Documentation: 02/18/24 18:12 . HPI Narrative: Constance is a 33-year-old female presents to the emergency department today for evaluation of diarrhea with abdominal pain. She reports that this started 3 weeks ago, says she has had intermittent diarrhea, saying it comes on some days and off other days. On the days that she has diarrhea she can have greater than 6 episodes daily of watery stool. The other days she has soft, almost formed stools. No blood in her stool. She does have abdominal discomfort described as cramping, especially to the left upper quadrant. This is accompanied by nausea, decreased p.o. intake, bloating, and gassiness. She denies fevers, viral symptoms such as cough/congestion, vomiting, change in bladder function. No history of abdominal surgeries. She does have a family history of bowel problems in her family, no known inflammatory bowel diseases. She does have h/o HTN, takes linisopril. Related Data Home Medications Medication Instructions Recorded Confirmed inhalational spacing device (Iraj #1 ea 02/06/20 02/18/24 Aerosol Poc[place]as Enhancer spacer) multivitamin 1 tab PO DAILY 11/02/20 02/18/24 fluticasone propionate 50 2 spray intranasal DAILY #9.9 grams 04/18/23 02/18/24 mcg/actuation nasal spray,suspension lisinopril 10 mg tablet 10 mg PO DAILY 90 days #90 tabs 08/12/23 02/18/24 norethindrone 1 mg-ethinyl 1 tab PO DAILY #84 tabs 08/14/23 02/18/24 estradiol 35 mcg tablet omeprazole 40 mg capsule,delayed 40 mg PO DAILY #90 caps 09/07/23 02/18/24 release tirzepatide 7.5 mg/0.5 mL 7.5 mg (0.5 mL) subcut QWEEK 28 11/18/23 02/18/24 subcutaneous pen injector days #2 mL (Mounjaro) albuterol sulfate 90 mcg/actuation 2 puff inhalation Q6H PRN ##1 11/30/23 02/18/24 aerosol inhaler (ProAir HFA) ondansetron 4 mg disintegrating 4 mg PO Q8H PRN #5 tabs 02/18/24 tablet Previous Rx's Medication Instructions Recorded inhalational spacing device (Iraj #1 ea 02/06/20 Aerosol Poc[place] Enhancer spacer) fluticasone propionate 50 2 spray intranasal DAILY #9.9 grams 04/18/23 mcg/actuation nasal spray,suspension lisinopril 10 mg tablet 10 mg PO DAILY 90 days #90 tabs 08/12/23 norethindrone 1 mg-ethinyl 1 tab PO DAILY #84 tabs 08/14/23 estradiol 35 mcg tablet omeprazole 40 mg capsule,delayed 40 mg PO DAILY #90 caps 09/07/23 release tirzepatide 7.5 mg/0.5 mL 7.5 mg (0.5 mL) subcut QWEEK 28 11/18/23 subcutaneous pen injector days #2 mL (Mounjaro) albuterol sulfate 90 mcg/actuation 2 puff inhalation Q6H PRN ##1 11/30/23 aerosol inhaler (ProAir HFA) ondansetron 4 mg disintegrating 4 mg PO Q8H PRN #5 tabs 02/18/24 tablet Allergies Allergy/AdvReac Type Severity Reaction Status Date / Time Environmental Allergy Intermediate Watery, Uncoded 02/18/24 18:15 itchy eyes, swelling General Stated Complaint: Abd Prob LIO: 3 Review of Systems Narrative: see HPI Exam Const General: cooperative, healthy appearing and comfortable Nutritional Appearance: obese Resp Effort & Inspection: normal respiratory effort and able to speak in complete sentences GI Inspection: normal to inspection Palpation: soft, not firm, no guarding, no masses and tender in the LLQ and in the LUQ Auscultation: normal bowel sounds Course Vital Signs Vital signs: Vital Signs Temperature 36.2 C L 02/18/24 18:15 Pulse 108 H 02/18/24 18:15 Respiratory Rate 16 02/18/24 18:15 Blood Pressure 170/85 H 02/18/24 18:15 Pulse Oximetry 99 02/18/24 18:15 Temperature 36.2 C L 02/18/24 18:15 Temperature Source Temporal Artery Scan 02/18/24 18:15 Pulse 108 H 02/18/24 18:15 Respiratory Rate 16 02/18/24 18:15 Respiratory Effort Normal, Non-Labored 02/18/24 18:18 Blood Pressure 170/85 H 02/18/24 18:15 Blood Pressure Position Sitting 02/18/24 18:15 Pulse Oximetry 99 02/18/24 18:15 Oxygen Delivery Method Room Air 02/18/24 18:15 Oxygen Flow Rate 0 02/18/24 18:15 Pain Level 5 02/18/24 18:15 Lab/Test Results Lab/Test Results: Laboratory Tests Range/Units 02/18/24 02/18/24 18:25 18:35 WBC (4.4-10.8) 10^3/uL 13.06 H RBC (3.93-5.22) 10^6/uL 4.59 Hgb (11.2-15.7) g/dL 13.5 Hct (36.0-46.0) % 41.3 MCV (80-95) fL 90 MCH (27.0-33.0) pg 29.4 MCHC (32.0-36.0) % 32.7 RDW (11.7-14.6) % 13.0 Plt Count (130-400) 10^3/uL 303 MPV (8.0-11.0) fL 9.2 Urine Color (Yellow) Yellow Urine Clarity (Clear) Clear Urine pH (5-8) 5.5 Ur Specific [place] (1.005-1.025) >= 1.030 H Urine Protein (Neg-Trace) mg/dL Negative Urine Ketones (Negative) mg/dL Negative Urine Blood (Negative) Negative Urine Nitrite (Negative) Negative Urine Bilirubin (Negative) Negative Urine Urobilinogen (Up to 0.2) mg/dL 0.2 Ur Leukocyte Esterase (Negative) Negative Urine Glucose (Negative) mg/dL Negative POC- Test(urine) Negative Medical Decision Making Constance barrera a 33-year-old female presents to the emergency department today for evaluation of diarrhea with abdominal pain. She reports that this started 3 weeks ago, says she has had intermittent diarrhea, saying it comes on some days and off other days. On the days that she has diarrhea she can have greater than 6 episodes daily of watery stool. The other days she has soft, almost formed stools. No blood in her stool. She does have abdominal discomfort described as cramping, especially to the left upper quadrant. This is accompanied by nausea, decreased p.o. intake, bloating, and gassiness. She denies fevers, viral symptoms such as cough/congestion, vomiting, change in bladder function. No history of abdominal surgeries. She does have a family history of bowel problems in her family, no known inflammatory bowel diseases. She does have h/o HTN, takes linisopril. Physical exam remarkable for tenderness to palpation to the left upper quadrant and left lower quadrant. Abdomen is soft, nondistended, no rigidity or guarding. Normoactive bowel sounds. Patient is alert and oriented, in no acute distress. DDx includes but is not limited to: pancreatitis, gallbladder dysfunction, small bowel obstruction, medication effect (mounjaro), electrolyte imbalance due to chronic diarrhea I independently interpreted the following tests: CBC notable for mild leukocytosis (WBC 13.06). CMP, lipase, HCG, and UA reassuring. CT abdomen/pelvis reassuring, only fatty liver noted, no acute processes. While in the emergency dept Constance was given zofran for nausea with good improvement in symptoms. Overall workup today reassuring. Unclear etiology of abdominal cramping and diarrhea, likely medication reaction to Mounjaro. Will send home with limited number of Zofran for nausea. Reviewed discharge instructions, including symptomatic management and importance of follow-up with PCP. Educated on red flags indicating need for return to emergency care. Quality:[facility] Health Related Social Needs: No Data to Display PFSH All Active Problems (Updated 02/18/24 @ 20:17 by Courtney Alan) Diarrhea (Acute) Diarrhea (Acute) Abdominal pain, left upper quadrant (Acute) Trigger finger, right index finger (Acute) Mass of right hand (Acute) Abnormal uterine bleeding (AUB) (Acute) onset 05/2023 after Mirena IUD removed. 07/10/23. Rx Norethindrone Acetate. 08/2023. OCPs Morbid obesity (Acute) 2017. BMI 66. 2022. BMI 77. Acanthosis nigricans (Acute) buttocks. Dysuria (Acute) Polycystic ovarian syndrome (Chronic) 20yo began oligomenorrhea. BMI was 52 at that time. Rx with Glucophage and OCPs or Norethindrone withdrawl, 05/2018: Mirena IUD 09/15/2019. String of pearls on both ovaries. 10/2019 Free Testosterone 1.12 (0.06-1.06). Asthma (Acute) Attention deficit hyperactivity disorder (Acute) Central scotoma, right eye (Acute 12/04/17) Gastroesophageal reflux disease (Acute) Nonintractable headache (Acute 10/17/17) [facility] mri ordered Secondary amenorrhea (Acute 05/30/14) Traumatic brain injury (Acute 12/28/17) [facility] Neuro.Eval. 01-07-2018 :TBI with LOC/ referred to oT at [facility]- PT at [facility] for gait retraining- Nortriptyline hs History of knee surgery (Acute) Insomnia disorder (Acute) Tachycardia (Acute) Anxiety (Chronic) Elevated BP without diagnosis of hypertension (Acute) Soft tissue swelling (Acute) Left posterior leg above the knee Body mass index [BMI] 70 or greater, adult (Acute) Acquired acanthosis nigricans (Acute) inner thighs. Medical History Hyperkeratosis COVID-19 (10/2022) Acute otitis media PPD screening test Cellulitis of great toe, left Vulvar abscess RUQ pain (10/17/17) [facility] Gastro : completing workup negative/ gastroscopy General counseling and advice on contraceptive management (04/26/18) OCPs in past. 2017-05/2023 Mirena IUD>condoms Concussion without loss of consciousness, initial encounter (11/30/17) fell in bathroom. struck head on sink. Asthma GERD (gastroesophageal reflux disease) ADHD (attention deficit hyperactivity disorder) Closed TBI (traumatic brain injury) 11/2017. Concussion with sequelae. E-coli UTI 08/2016. Rx with Nitrofurantoin. Surgical History Meniscectomy medial meniscus torn: 2013 Family History Mother Neoplasm OVERIAN Father No problems noted. Sister No problems noted. Grandfather Diabetes Grandfather No problems noted. Grandmother Diabetes Grandmother Diabetes Social History Smoking/Tobacco Use Status: Never Second Hand Exposure: No Smoking risk assessment performed?: Yes Alcohol Intake: never Drug use: Never Substance use type: marijuana Details: CBD oil to treat migraines. 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 Pets and animals: Yes Pets and animals: dog(s) Sexually active: Yes Do you think of yourself as: bisexual Current gender identity: female What is your relationship status?: How often do you talk on the phone with friends or family?: twice per week How often do you get together with friends or relatives?: once per week How often do you attend presybeterian or cheondoism services?: decline to answer Do you belong to any clubs or organized social groups?: no Panel score (0-1 are the most socially isolated patients): 2 What type of physical activity do you participate in: walking and weight lifting Duration: 15-30 minutes/day Yeny/Muslim: [place] Special yeny needs: No Seatbelt use: always Helmet use: Yes Helmet use: always Drive intox or ride w/intox recycler forklift driver truck driver: No Do you feel safe at home: Yes Do you feel safe in your relationship?: Yes Female Reproductive History Menstrual control method: condoms History History 0 Para Hx # Term Pregnancies Multiple births Hx # Pregnancies Ectopic pregnancies AB induced Hx Number of Living Children AB spontaneous
[2024-02-18 18:58] LABS: ALT 32 U/L (14-59); AST 21 U/L (15-37); Albumin 3.2 g/dL (3.4-5.0); Alkaline Phosphatase 69 U/L (46-116); Anion Gap 10.4 mmol/L (3-11); BUN 11 mg/dL (7-18); Bilirubin, Total 0.2 mg/dL (0.2-1.0); CO2 24.6 mmol/L (21.0-32.0); CREATININE 0.8 mg/dL (0.55-1.02); Calcium 8.5 mg/dL (8.5-10.1); Chloride 105 mmol/L (98-107); Estimated GFR 100.33 (mL/min/1.73m2); Glucose 91 mg/dL (74-106); Lipase 56 U/L (16-77); Potassium 3.7 mmol/L (3.5-5.1); Sodium 140 mmol/L (136-145); Total Protein 7.5 g/dL (6.4-8.2)
[2024-02-18] MEDS: Ondansetron O.D.T. 4 MG TABEF PO (19:16)
[2024-02-18 19:29] VITALS: BP 161/62; PULSE 104; RESP 18; O2SAT 98
[2024-02-18] MEDS: Normal Saline 1,000 ML 500 ML IV (19:33)
[2024-02-18] MEDS: Ketorolac 15 MG/ML VIAL IVP (19:33)
--- NOTE | 2024-02-18 19:50 | DI.VRAD_ITS ---
PROCEDURE INFORMATION: Exam: CT Abdomen And Pelvis Without Contrast Exam date and time: 02/18/2024 6:58 PM Age: 33 years old Clinical indication: Other: Diarrhea; Abdominal pain; Additional info: Abd pain with diarrhea TECHNIQUE: Imaging protocol: Computed tomography of the abdomen and pelvis without contrast. COMPARISON: CT ABDOMEN PELVIS W 12/25/2018 12:36 AM FINDINGS: Lungs: Lung bases are clear. Pleural spaces: No pleural effusion. Heart: Normal heart size. No pericardial effusion. No coronary artery atherosclerotic calcium. Liver: Diffuse moderate fatty liver change. Gallbladder and bile ducts: The gallbladder is normal in size and shape. No stones or inflammatory changes. Pancreas: The pancreas is normal in contour and attenuation. Spleen: The spleen is normal in size, contour and attenuation. Adrenal glands: The adrenal glands are normal in size and contour bilaterally. Kidneys and ureters: The kidneys bilaterally are unremarkable. Normal attenutation. No hydronephrosis. No calculi. Incidental circumaortic left renal venous structures. Stomach and bowel: Gastric morphology is unremarkable. No edema. No gastric outlet obstruction.Small bowel loops are normal in course and caliber. There is no mucosal edema or bowel wall thickening. No obstructive features. The colon contains formed fecal material. There is no bowel wall thickening. No inflammatory features. No obstruction. Appendix: A non inflamed appendix is identified. Series 2: Images 68 through 77. Intraperitoneal space: No free fluid. No free air. Vasculature: Unremarkable. No abdominal aortic aneurysm. Lymph nodes: Unremarkable. No enlarged lymph nodes. Urinary bladder: Urinary bladder is poorly distended. No acute abnormalities are suggested. Reproductive: The uterus and adnexa are unremarkable in appearance. There are no dominant adnexal cysts or masslike features. There are no inflammatory features. No uterine mass evident. Bones/joints: No acute skeletal findings. No acute skeletal change. Soft tissues: Abdominal wall soft tissues are unremarkable. No acute features. IMPRESSION: 1. No acute findings of the abdomen or pelvis. 2. No bowel edema or inflammatory features. 3. Fatty liver infiltration. Dictated and Authenticated by: Delonte Lagunas MD. Ordering:JADEN Valdez MD
[2024-02-18 20:18] VITALS: BP 140/60; PULSE 97; RESP 18; O2SAT 98
[2024-02-18 20:31] VITALS: PULSE 102; RESP 18; O2SAT 96
--- NOTE | 2024-02-18 21:58 | NUR.NOTE ---
[facility].Nursing Note:
== END 2024-02-18 20:32 | disposition home or self-care (01) ==
PROVIDERS: Emergency Provider Nurse Practitioner Family; PCP Nurse Practitioner Family
DX: R19.7 Diarrhea, unspecified (principal); R10.12 Left upper quadrant pain; I10 Essential (primary) hypertension; Z79.899 Other long term (current) drug therapy
CPT/HCPCS: 80053; 81025; 83690; 85027; 99284; 74176; 81003; J1885

== ENCOUNTER 2024-05-30 10:12 | Outpatient (REF) | payer BC, SELFPAY ==
--- NOTE | 2024-05-30 10:10 | ENDOMET_PTH ---
PATIENT: Constance Acevedo LOC: [facility] U#:[id number] AGE/SX: 33/F ROOM: RE05/30/[address]: Lorin Mueller : 1990 BED: DIS: 05/30/2024 SPEC #: [id number] RECD: 05/30/24 12:47 STATUS: MITA REQ #: [id number] JANUSZ: 05/30/24 10:[address]: Lorin Mueller DEPT: Surgical Specimen RECD BY: Marta Merrill ENTERED: 05/30/24 12:47 SP TYPE: Endomet OTHR DR: Brandon Lopez DNP Tissues: 1 - ENDOMETRIUM BX/CURRETTE Procedures: GROSS AND MICRO LEVEL 4 Comments: [id number]
== END 2024-05-30 10:13 | disposition home or self-care (01) ==
LOC: LBN 10:12
PROVIDERS: PCP Nurse Practitioner Family; Visit Provider Obstetrics & Gynecology Gynecology
DX: N93.9 Abnormal uterine and vaginal bleeding, unspecified (principal); N72 Inflammatory disease of cervix uteri
CPT/HCPCS: 88305

== ENCOUNTER 2024-09-02 13:30 | Outpatient (CLI) | payer BC, SELFPAY ==
[2024-09-02 14:41] LABS: Abs Immature Grans 0.05 10^3/uL (0.0-0.06); Absolute Basophil Count 0.06 10^3/uL (0.0-0.2); Absolute Eosinophil Count 0.29 10^3/uL (0.0-0.7); Absolute Neutrophil Count 8.24 10^3/uL (1.2-6.7); Basophils % 0.5 %; Eosinophils % 2.3 %; HCT 43.8 % (36.0-46.0); HGB 14.1 g/dL (11.2-15.7); Immature Grans % 0.4 %; Lymphocytes % 27.2 %; MCH 28.9 pg (27.0-33.0); MCHC 32.2 % (32.0-36.0); MCV 90 fL (80-95); MPV 8.9 fL (8.0-11.0); Monocytes % 4.7 %; Neutrophils % 64.9 %; Platelet Count 332 10^3/uL (130-400); RBC 4.88 10^6/uL (3.93-5.22); RDW 12.9 % (11.7-14.6); RDW-SD 42.6 fL
[2024-09-02 14:42] LABS: Absolute Lymphocyte Count 3.45 10^3/uL (1.2-3.4)
[2024-09-02 14:52] LABS: ESR 36 mm/hr (0-20)
[2024-09-02 15:15] LABS: Uric Acid 5.5 mg/dL (2.6-6.0)
[2024-09-02 21:45] LABS: CRP, High Sensitivity >15.00 mg/L (See Note)
[2024-09-05 08:53] LABS: Lyme Ab w Rflx to Lyme Confirm Negative (Negative)
[2024-09-05 10:56] LABS: Cyclic Citrullinated Peptide 4.1 U/mL (<5.0)
[2024-09-05 13:54] LABS: ANA Interpretation Negative (Negative)
[2024-09-06 08:09] LABS: Anaplasma phagocytophilum Negative (Negative); B. miyamotoi PCR Negative (Negative); Babesia divergens/MO-1 Negative (Negative); Babesia duncani Negative (Negative); Babesia microti Negative (Negative); Ehrlichia chaffeensis Negative (Negative); Ehrlichia ewingii/canis Negative (Negative); Ehrlichia muris eauclairensis Negative (Negative)
== END 2024-09-02 13:31 | disposition home or self-care (01) ==
LOC: LBO 13:32
PROVIDERS: PCP Nurse Practitioner Family; Visit Provider Nurse Practitioner Family
DX: M26.629 Arthralgia of temporomandibular joint, unspecified side (principal)
CPT/HCPCS: 36415; 85652; 86141; 86200; 87798; 84550; 85025; 86038; 86618

== ENCOUNTER 2024-09-05 14:14 | Outpatient (CLI) | payer BC, SELFPAY ==
--- NOTE | 2024-09-05 08:15 | DI.RAD_ITS ---
Exam(s) XR ARTHRITIS SERIES EXAM: XR ARTHRITIS SERIES CLINICAL HISTORY: evaluate pathology,arthralgia both hands, m25.541,m25.542. TECHNIQUE: 2D digital imaging was performed. COMPARISON: CR XR HAND RT COMPLETE from 10/30/2023 FINDINGS: Two views both hands-PA and [place]aard/ball catcher's views: There appears to be some mild soft tissue swelling around the proximal phalanges of the index fingers both hands. There are no fractures evident in either hand. No osseous lesions nor erosions and no radiopaque for eign bodies evident. Also no abnormal soft tissue calcifications. Bone density normal. IMPRESSION: Mild soft tissue swelling as above. No significant osseous findings. No radiopaque foreign bodies. DATA REPOSITORY: RADIATION DOSE DELIVERED:
== END 2024-09-05 14:34 ==
LOC: DI 14:14
PROVIDERS: PCP Nurse Practitioner Family; Visit Provider Nurse Practitioner Family
DX: R22.33 Localized swelling, mass and lump, upper limb, bilateral
CPT/HCPCS: 73120

== ENCOUNTER → 2025-09-16 11:46 | Outpatient (CLI) | payer BC, SELFPAY ==
--- NOTE | 2025-09-16 13:00 | DI.RAD_ITS ---
Exam(s) XR CHEST 2V PA LATERAL EXAM: XR CHEST 2V PA LATERAL CLINICAL HISTORY: eval pna. TECHNIQUE: 2D digital imaging was performed. COMPARISON: CR,XR XR CHEST 2V PA LATERAL from 09/26/2022 FINDINGS: 2 views: Heart size is normal. The mediastinum is not widened. Lungs are clear. No infiltrates nor pleural effusions. IMPRESSION: No acute pulmonary findings. DATA REPOSITORY: RADIATION DOSE DELIVERED:
--- NOTE | 2025-09-16 13:41 | DI.VRAD_ITS ---
PROCEDURE INFORMATION: Exam: XR Chest Exam date and time: 09/16/2025 1:04 PM Age: 34 years old Clinical indication: Cough; Evaualate pna TECHNIQUE: Imaging protocol: Radiologic exam of the chest. Views: 2 views. COMPARISON: CR XR CHEST 2V PA LATERAL 09/26/2022 6:13 PM FINDINGS: Lungs: Unremarkable. No consolidation. Pleural spaces: Unremarkable. No pleural effusion. No pneumothorax. Heart/Mediastinum: Unremarkable. No cardiomegaly. Bones/joints: Unremarkable. IMPRESSION: No acute findings by plain film exam Dictated and Authenticated by: Margarita Wooten MD. Orderin Sheeba Coronado MD
== END ==
LOC: DI 11:46
PROVIDERS: PCP Nurse Practitioner Family; Visit Provider Nurse Practitioner Family
DX: R06.02 Shortness of breath (principal); R05.9 Cough, unspecified
CPT/HCPCS: 71046